=== PATIENT | female | born 1965 | race Caucasian/White ===

== ENCOUNTER 2020-09-08 09:49 | Observation (INO) | payer BC, OTHER ==
[2020-09-08] MEDS ORDERED: ASPIRIN 81 MG PO STA (10:14)
[2020-09-08] MEDS ORDERED: NITROGLYCERIN SL TABS 0.4 MG TAB SUBLINGUAL STA (10:14)
[2020-09-08] MEDS ORDERED: SODIUM CHLORIDE 0.9% 1,000 ML IV STA (10:14)
--- NOTE | 2020-09-08 10:20 | ED ---
Chest Pain HPI - General Chief Complaint: Chest Pain Stated Complaint: Chest Pain/Nausea Time Seen by Provider: 09/08/20 10:03 Source: patient Mode of arrival: ambulatory Limitations: no limitations - History of Present Illness Initial Comments: 55-year-old white female, well-appearing and alert and oriented 4, presents to the emergency room with approximately one hour of chest pain that radiates down her right arm, her mid back, in her anterior neck right side. Patient states that she has never had these symptoms before. She states that she does have some nausea but denies any shortness of breath or cough. Patient denies any medications on a daily basis. Patient is a nonsmoker. Patient has a surgical history of a bowel resection and a cholecystectomy. Patient denies any family history of cardiac disease, states both parents are alive. MD Complaint: chest pain -: hour(s) (1) Onset: during rest Pain Location: substernal Pain Radiation: RUE, back (mid back), neck (anterior) Severity: moderate Severity scale (1-10): 5 Quality: heaviness (pressure) Improves With: nothing Worsens With: nothing Anginal Symptoms: nausea Treatments Prior to Arrival: none - Related Data On Oral Contraceptives: No Home Medications Medication Instructions Recorded Confirmed Escitalopram [Lexapro] 10 mg PO DAILY 09/08/20 09/08/20 Allergies Allergy/AdvReac Type Severity Reaction Status Date / Time No Known Allergies Allergy Verified 09/08/20 11:07 Review of Systems ROS Statement: Those systems with pertinent positive or pertinent negative responses have been documented in the HPI. ROS Other: All systems not noted in ROS Statement are negative. EKG Findings - EKG Results: EKG: WNL, sinus rhythm (ricular rate of 60, TN interval 0.126, QRS of 0.72, QTC of 0.418; normal sinus rhythm) Past Medical History Past Medical History: No Reported History History of Any Multi-Drug Resistant Organisms: None Reported Past Surgical History: Bowel Resection, Section, Cholecystectomy Past Psychological History: Anxiety Smoking Status: Never smoker Past Alcohol Use History: None Reported Past Drug Use History: None Reported General Exam Limitations: no limitations General appearance: alert, in no apparent distress Head exam: Present: atraumatic, normocephalic, normal inspection Eye exam: Present: normal appearance, PERRL, EOMI. Absent: scleral icterus, conjunctival injection, periorbital swelling Pupils: Present: normal accommodation ENT exam: Present: normal exam, normal oropharynx, mucous membranes moist Neck exam: Present: normal inspection, full ROM. Absent: tenderness, meningismus, lymphadenopathy, thyromegaly Respiratory exam: Present: normal lung sounds bilaterally. Absent: respiratory distress, wheezes, rales, rhonchi, stridor, accessory muscle use, decreased breath sounds Cardiovascular Exam: Present: regular rate, normal rhythm, normal heart sounds. Absent: systolic murmur, diastolic murmur, rubs, gallop, clicks, JVD GI/Abdominal exam: Present: soft, normal bowel sounds. Absent: distended, tenderness, guarding, rebound, rigid Rectal exam: Present: deferred Extremities exam: Present: normal inspection, full ROM, normal capillary refill. Absent: tenderness, pedal edema, joint swelling, calf tenderness Back exam: Present: normal inspection, full ROM, tenderness (Mid back pain). Absent: CVA tenderness (R), CVA tenderness (L), muscle spasm, paraspinal tenderness, vertebral tenderness Neurological exam: Present: alert, oriented X3, CN II-XII intact Psychiatric exam: Present: normal affect, normal mood Skin exam: Present: warm, dry, intact, normal color. Absent: rash, cyanosis, diaphoretic, erythema, petechiae, pallor, mottled Course Vital Signs 09/08/20 09/08/20 09:52 13:21 Temperature 98 F Pulse Rate 68 69 Respiratory 18 16 Rate Blood Pressure 108/59 115/78 O2 Sat by Pulse 99 100 Oximetry Chest Pain MDM - MDM Chest x-ray negative for acute cardiopulmonary process, troponin is negative at 0.012, hemoglobin and hematocrit is 14 and 41 respectively, white count 9.9. EKG is negative for any ST elevation. Patient's heart score is 2, pain at rest with radiation to her right arm and age of 55. Patient denies any medical history. Is a nonsmoker. Negative family history. Patient will be admitted for chest pain. Case discussed with Dr. Cantu. Disposition Clinical Impression: Chest pain Disposition: ADMITTED IP TO THIS [facility] Decision Date: 09/08/20 Decision Time: 12:06
[2020-09-08 10:48] LABS: Basophils # (A) 0.1 k/uL (0-0.2); Basophils % (A) 1 %; Eosinophils % (A) 10 %; HCT 41.5 % (34.0-46.0); HGB 14.5 gm/dL (11.4-16.0); Lymphocytes % (A) 31 %; MCV 85.9 fL (80.0-100.0); Mean Platelet Volume 6.4; Monocytes # (A) 0.6 k/uL (0-1.0); Monocytes % (A) 6 %; Neutrophils # (A) 4.9 k/uL (1.3-7.7); Neutrophils % (A) 50 %; Platelet Count 291 k/uL (150-450); RBC 4.83 m/uL (3.80-5.40); RDW 12.2 % (11.5-15.5); WBC 9.9 k/uL (3.8-10.6)
[2020-09-08 10:49] LABS: Appearance,Urine Clear (Clear); Bilirubin,Urine Negative (Negative); Blood,Urine Negative (Negative); Color,Urine Light Yellow; Glucose,Urine (UA) Negative (Negative); Ketones,Urine Negative (Negative); Leukocyte Esterase,Urine Negative (Negative); Nitrite,Urine Negative (Negative); PH, Urine 5.5 (5.0-8.0); Protein,Urine Negative (Negative); Specific Gravity,Urine 1.006 (1.001-1.035); Urobilinogen,Urine <2.0 mg/dL (<2.0)
[2020-09-08 10:57] LABS: Partial Thromboplastin Time 24.7 sec (22.0-30.0); Prothrombin Time 10.4 sec (9.0-12.0)
[2020-09-08 11:03] LABS: ALT 11 U/L (4-34); AST 26 U/L (14-36); African American GFR (CKD) >90 (>60 ml/min/1.73 sqM); Albumin 4.6 g/dL (3.5-5.0); Alkaline Phosphatase 101 U/L (38-126); Amylase 93 U/L (30-110); Anion Gap 7 mmol/L; Blood Urea Nitrogen 19 mg/dL (7-17); Calcium 9.9 mg/dL (8.4-10.2); Carbon Dioxide 29 mmol/L (22-30); Chloride 103 mmol/L (98-107); Glucose 105 mg/dL (74-99); Lipase 284 U/L (23-300); Non-African American GFR(CKD) >90 (>60 ml/min/1.73 sqM); Potassium 4.4 mmol/L (3.5-5.1); Sodium 139 mmol/L (137-145); Total Bilirubin 0.4 mg/dL (0.2-1.3); Total Protein 7.4 g/dL (6.3-8.2)
--- NOTE | 2020-09-08 11:35 | XR ---
EXAMINATION TYPE: XR chest 2V DATE OF EXAM: 09/08/2020 COMPARISON: None HISTORY: Chest pain, nausea TECHNIQUE: Frontal and lateral views of the chest are obtained. FINDINGS: Overlying leads. Heart size is within normal limits. Trachea is midline. No focal consolid ation, pneumothorax or pleural effusion. Osseous structures are unremarkable. IMPRESSION: 1. No acute pulmonary disease.
[2020-09-08] MEDS ORDERED: NALOXONE 0.4 MG/ML 1 ML VIAL IV PRN (12:49)
[2020-09-08] MEDS: SODIUM CHLORIDE 0.9% 1,000 ML IV SCH (13:20)
--- NOTE | 2020-09-08 15:08 | US ---
EXAMINATION TYPE: US abdomen complete DATE OF EXAM: 09/08/2020 COMPARISON: NONE CLINICAL HISTORY: pain. Abdomen pain EXAM MEASUREMENTS: Liver Length: 13.8 cm Gallbladder Wall: Unable to visualize gallbladder. CBD: 0.7 cm Spleen: 9.1 cm Right Kidney: 10.6 x 4.4 x 4.4 cm Left Kidney: 9.4 x 5.2 x 4.7 cm Pancreas: visualized portions wnl, limited by overlying midline bowel gas Liver: wnl Gallbladder: unable to visualize in supine and LLD positions, patient states she has not had her gal lbladder removed Evidence for sonographic Lizama's sign: yes CBD: wnl Spleen: visualized portions wnl, limited by overlying bowel gas Right Kidney: wnl Left Kidney: wnl Upper IVC: wnl Abd Aorta: wnl IMPRESSION: 1. The gallbladder is not visualized on this study. The patient states the gallbladder has not been r emoved. Positive Lizama's sign per computer engineering technologist. 2. No hydronephrosis or shadowing renal calculi. 3. The pancreas and spleen are limited in visualization due to overlying bowel gas.
[2020-09-08] MEDS ORDERED: TEMAZEPAM 15 MG CAP PO PRN (18:20)
[2020-09-08] MEDS ORDERED: ALPRAZolam 0.25 MG TAB PO PRN (18:20)
[2020-09-08] MEDS ORDERED: IOPAMIDOL CONTRAST (ORAL USE) VIAL PO PRN (18:59)
[2020-09-08] MEDS: PANTOPRAZOLE 40 MG/10 ML VIAL IVP SCH (19:22)
[2020-09-08] MEDS: HYDROmorphone 0.5 MG/0.5 ML SYRINGE IVP PRN (19:22)
--- NOTE | 2020-09-08 21:01 | HP ---
HISTORY AND PHYSICAL DATE OF SERVICE: 09/08/2020. CHIEF COMPLAINT: Chest pain and chest pressure. HISTORY OF PRESENT ILLNESS: This is a 55-year-old woman with a past medical history of section, bowel resection, history of colonic volvulus, history of cholecystectomy, cystectomy, section being followed by primary physician elsewhere, was complaining of back pain for the last several days which was nagging in character. Now the patient is complaining of chest pressure, which was radiating to the right arm and midback also. The patient also has some anterior neck pain. Patient also had pain in the right shoulder area. The patient came to [facility] and was admitted to for further evaluation and treatment. There is no history of fever, rigors. No headache, loss of consciousness, seizures. PAST MEDICAL HISTORY: History of section, history of bowel resection, history of cholecystectomy. MEDICATIONS: Prior to admission, Lexapro 10 mg daily. ALLERGIES: None. FAMILY HISTORY: No history of heart disease or strokes in the family. SOCIAL HISTORY: No smoking. No history of alcohol intake. REVIEW OF SYSTEMS: ENT: Mentioned earlier. CARDIOVASCULAR SYSTEM: No angina. RESPIRATION: No cough. GI: As mentioned earlier. : No dysuria. NERVOUS SYSTEM: No numbness, weakness. ALLERGY: No asthma or hayfever. MUSCULOSKELETAL: As mentioned. ( ) ENDOCRINE: No history of diabetes or hypothyroidism. CONSTITUTIONAL: Negative. RHEUMATOLOGY: Negative. PSYCHIATRIC: As mentioned. PHYSICAL EXAMINATION: Alert, attentive. Pulse 57, blood pressure 120/76 respiration 17, temperature 97.9, pulse ox 97% on room air. HEENT: Conjunctivae normal. Oral mucosa moist neck is no jugular venous distention. No lymph enlargement. Cardiovascular system: No cyanosis pressure in the bases. No rhonchi. No crackles. Abdomen: Soft, nontender. No mass palpable. Legs: No edema. Nervous System: Higher functions as mentioned. Moves all 4 limbs. No focal deficit. Lymphatics: No lymph nodes. Skin: No rash, no ulcers. Joints: No active deforming arthropathy. LABS: CBC within normal limits and ( ) is 1. Glucose is 105 and COVID-19 is negative. Abdominal ultrasound showed: Gallbladder is not visualized. No hydronephrosis. Pancreas and spleen are limited in visualization. ASSESSMENT: 1. Chest pain, for evaluation possible coronary disease. 2. Rule out cholelithiasis. 3. History of bowel resection. 4. ( ). 5. History of cholecystectomy. 6. History of anxiety. 7. FULL CODE. RECOMMENDATIONS: This 55-year-old woman who presented with multiple complex medical issues, at this time I recommend to continue current management and treatment. The initial troponins are negative. The EKG did not show acute abnormality. We will continue to monitor and obtain a cardiology consultation. I would also recommend a D-dimer and also obtain a CT scan of the chest and abdomen. If the D-dimer is negative with contrast, if is positive we will obtain CT angio of the chest. Prognosis guarded because of multiple complex medical problems. Further recommendations to follow. Discussed with the patient, who understands and agrees. MMPENNYL / IJN: [id number] /
--- NOTE | 2020-09-08 22:26 | CT ---
EXAMINATION TYPE: CT angio thor/abd pel aorta DATE OF EXAM: 09/08/2020 COMPARISON: None HISTORY: RULE OUT AORTIC ANEURYSM CT DLP: 896.20 mGycm Automated exposure control for dose reduction was used. CONTRAST: Performed with IV Contrast, patient injected with 100 mL of Isovue 370. Images obtained from the thoracic inlet to the diaphragm without contrast. Images obtained from the t horacic inlet to the lower pelvis with IV contrast Isovue 100 mL. There are 3-D post processed images . The lungs are clear of infiltrate. There is no evidence of a pulmonary mass. There is no pleural effu jaye. There is no pericardial effusion. Heart size is normal. There is no mediastinal adenopathy. The re are no hilar masses. Liver spleen stomach pancreas appear normal. The bile ducts are not dilated. There are clips from cho lecystectomy. There is no adrenal mass. Kidneys show satisfactory contrast opacification. There is no hydronephrosi s. Ureters are not dilated. There is no retroperitoneal adenopathy. There is no evidence of a pelvic mass. There is no mesenteric edema. There is no ascites or free air. There is no evidence of a bowel obstruction. There is no evidence of filling defect in the pulmonary arteries. Thoracic aorta appears normal. Ascending aorta measures 2.8 cm. Abdominal aorta appears normal. There is no aneurysm or dissection. There is arterial flow in the celiac artery and superior mesenteric ar glen. There is arterial flow in the renal and iliac and femoral arteries. There is no evidence of art erial aneurysm or dissection. I see no hemodynamic stenosis. There is no evidence of any significant plaque formation The lumbar and thoracic vertebra appear intact. There is no compression fracture. Sternum is intact. The visualized pelvis appears intact. IMPRESSION: Normal CT angiogram of the chest abdomen pelvis. No evidence of arterial aneurysm or dissection.
[2020-09-09] MEDS: SODIUM CHLORIDE 0.9% 1,000 ML IV SCH ×2 (02:02→16:02)
[2020-09-09] MEDS: ASPIRIN 81 MG PO SCH (08:50)
[2020-09-09] MEDS: PANTOPRAZOLE 40 MG/10 ML VIAL IVP SCH ×2 (08:50→21:06)
[2020-09-09] MEDS: ESCITALOPRAM 10 MG TAB PO SCH (08:52)
[2020-09-09 09:24] LABS: Basophils # (A) 0.09 X 10*3/uL (0.00-0.10); Basophils % (A) 1.1 %; Eosinophils # (A) 0.91 X 10*3/uL (0.04-0.35); Eosinophils % (A) 11.6 %; HGB 13.3 g/dL (12.0-15.0); Lymphocytes # (A) 2.81 X 10*3/uL (0.90-5.00); Lymphocytes % (A) 35.8 %; MCH 29.6 pg (27.0-32.0); MCHC 33.3 g/dL (32.0-37.0); MCV 89.1 fL (80.0-97.0); Mean Platelet Volume 9.3 fL (9.5-12.2); Monocytes # (A) 0.69 X 10*3/uL (0.20-1.00); Monocytes % (A) 8.8 %; Neutrophils # (A) 3.34 X 10*3/uL (1.80-7.70); Neutrophils % (A) 42.4 %; Platelet Count 261 X 10*3/uL (140-440); RBC 4.49 X 10*6/uL (4.10-5.20); RDW 12.3 % (11.5-14.5); WBC 7.86 X 10*3/uL (4.50-10.00)
--- NOTE | 2020-09-09 10:57 | P.CRDCN ---
History of Present Illness History of present illness: HISTORY OF PRESENTING ILLNESS This is a pleasant 55-year-old female past medical history significant for abdominal surgeries. 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 We have been asked to see in consultation for chest pain. Patient presents to the emergency room with approximately one hour of anterior chest pain that radiates to right shoulder, her upper mid back, in her anterior neck right side. She states this started around 6:30am, she was just sitting at her kitchen table. She describes it as 10/10, sharp. It lasted about an hour. She had associated nausea and lightheadedness. She denies diaphoresis and shortness of breath lower extremity edema, fatigue, weakness, syncope. Aggravating factors including movement of neck and torso. Her chest, arms, back and neck are all tender to palpation. Alleviating factors included IV Dilaudid. Nitro and aspirin did not help relieve her pain. Denies symptoms of orthopnea or PND. She denies history of Diabetes, coronary artery disease, MA, hypertension, hyperlipidemia or stroke. She is s non-smoker, never has smoked, denies alcohol and illicit drug use. She denies family history of cardiac disease. She denies use of any cardiac medications. She has never had this pain before. She states years ago she did have a cardiac workup that included an echocardiogram and was told that was normal. She continues to have neck pain at this time, worse with movement. DIAGNOSTICS EKG reveals sinus rhythm, heart rate 60, no significant STT wave abnormalities. EKG 09/09 morning revealed sinus bradycardia, heart rate 55, no significant STT wave abnormalities Telemetry tracings indicate sinus mechanism, heart rate 55-70s Chest xray No acute cardiopulmonary process Abdominal Ultrasound- Positive blakely's sign per contract technician, No hydr onephrosis, pancreas and spleen are limited visualization due to overlying gas pattern. Laboratory reviewed, CBC unremarkable, troponin negative x 1, D-dimer negative, Sodium 139, K 4.4, BUN 19, sCr 0.74, Mag 2.0, Liver enzymes within normal limits, Amylase and lipase within normal limits, CBC unremarkable. REVIEW OF SYSTEMS At the time of my exam: CONSTITUTIONAL: Denies fever or chills. CARDIOVASCULAR: +chest pain, Denies shortness of breath, orthopnea, PND or palpitations. RESPIRATORY: Denies cough. GASTROINTESTINAL: Denies abdominal pain, diarrhea, constipation, nausea or vomiting. MUSCULOSKELETAL: Denies myalgias. NEUROLOGIC: Denies numbness, tingling, headacbe or weakness. ENDOCRINE: Denies fatigue, weight change, polydipsia or polyurina. GENITOURINARY: Denies burning, hematuria or urgency with micturation. HEMATOLOGIC: Denies history of anemia or bleeding. PHYSICAL EXAMINATION Blood pressure 105/68 heart rate 63 afebrile and maintaining oxygen saturation 97% on room air CONSTITUTIONAL: No apparent distress. HEENT: Head is normocephalic. Pupils are equal, round. Sclerae anicteric. Mucous membranes of the mouth are moist. No JVD. No carotid bruit. CHEST EXAMINATION: Lungs are clear to auscultation. Chest wall tenderness to palpation HEART EXAMINATION: Regular rate and rhythm. S1, S2 heard. No murmurs, gallops or rub. ABDOMEN: Soft, nontender. Positive bowel sounds. EXTREMITIES: 2+ peripheral pulses, no lower extremity edema and no calf tenderness. SKIN: intact NEUROLOGIC EXAMINATION: Patient is awake, alert and oriented x3. MSK: Neck tenderness to palpation and movement, Right arm and left arm tenderness with palpation and movement, Upper back tenderness with palpation ASSESSMENT Chest pain, atypical, acute coronary syndrome has been ruled out. PLAN An acute coronary event has been ruled out with no EKG evidence of ischemia and negative cardiac enzymes. Obtain 2D echocardiogram and doppler study to assess cardiac structure and function. Perform exercise stress test to assess for stress induced cardiac ischemia. If stress test negative, ok to discharge from cardiology perspective Follow up with Dr. Hernandez Thank you kindly for this consultation. Nurse Practitioner note has been reviewed, I agree with a documented findings and plan of care. Patient was seen and examined. Past Medical History Past Medical History: No Reported History History of Any Multi-Drug Resistant Organisms: None Reported Past Surgical History: Bowel Resection, Section, Cholecystectomy Past Psychological History: Anxiety Smoking Status: Never smoker Past Alcohol Use History: None Reported Past Drug Use History: None Reported Medications and Allergies Home Medications Medication Instructions Recorded Confirmed Type Escitalopram [Lexapro] 10 mg PO DAILY 09/08/20 09/08/20 History traMADol HCL [Ultram] 50 mg PO Q4HR PRN 3 Days #18 tab 09/09/20 Rx Allergies Allergy/AdvReac Type Severity Reaction Status Date / Time No Known Allergies Allergy Verified 09/08/20 11:07 Physical Exam Vitals: Vital Signs Temp Pulse Resp BP Pulse Ox 09/08/20 13:21 69 16 115/78 100 09/08/20 09:52 98 F 68 18 108/59 99 Intake and Output 09/07/20 09/08/20 09/08/20 22:59 06:59 14:59 Other: Weight 76.657 kg Results 09/09/20 06:00 09/08/20 10:05 Cardiac Enzymes 09/08/20 09/08/20 Range/Units 10:05 10:05 AST 26 (14-36) U/L Troponin I <0.012 (0.000-0.034) ng/mL Coagulation 09/08/20 Range/Units 10:05 PT 10.4 (9.0-12.0) sec APTT 24.7 (22.0-30.0) sec CBC 09/08/20 Range/Units 10:05 WBC 9.9 (3.8-10.6) k/uL RBC 4.83 (3.80-5.40) m/uL Hgb 14.5 (11.4-16.0) gm/dL Hct 41.5 (34.0-46.0) % Plt Count 291 (150-450) k/uL Comprehensive Metabolic Panel 09/08/20 Range/Units 10:05 Sodium 139 (137-145) mmol/L Potassium 4.4 (3.5-5.1) mmol/L Chloride 103 (98-107) mmol/L Carbon Dioxide 29 (22-30) mmol/L BUN 19 H (7-17) mg/dL Creatinine 0.74 (0.52-1.04) mg/dL Glucose 105 H (74-99) mg/dL Calcium 9.9 (8.4-10.2) mg/dL AST 26 (14-36) U/L ALT 11 (4-34) U/L Alkaline Phosphatase 101 (38-126) U/L Total Protein 7.4 (6.3-8.2) g/dL Albumin 4.6 (3.5-5.0) g/dL Current Medications Generic Name Dose Route Start Last Admin Trade Name Freq PRN Reason Stop Dose Admin Sodium Chloride 1,000 mls @ 75 mls/hr 09/08/20 13:00 09/08/20 13:20 Saline 0.9% IV 75 mls/hr .[id number] SHANNA Administration Naloxone HCl 0.2 mg 09/08/20 12:49 Naloxone 0.4 Mg/Ml 1 Ml Vial IV Q2M PRN Opioid Reversal Intake and Output 09/07/20 09/08/20 09/08/20 22:59 06:59 14:59 Other: Weight 76.657 kg Patient Weight 09/09/20 06:59 Weight 76.657 kg 09/08/20 10:05 09/08/20 10:05
[2020-09-09 14:09] LABS: African American GFR (CKD) 96.2 (60.0-200.0); Albumin 3.8 g/dL (3.80-4.90); Albumin/Globulin Ratio 1.58 (1.60-3.17); Anion Gap 6.3 mmol/L (4.00-12.00); BUN/Creat Ratio 13.75 Ratio (12.00-20.00); Calcium 8.8 mg/dL (8.7-10.3); Carbon Dioxide 28.7 mmol/L (21.6-31.8); Globulin 2.4 g/dL (1.6-3.3); Potassium 4.3 mmol/L (3.5-5.5); Total Bilirubin 0.6 mg/dL (0.2-1.2); Total Protein 6.2 g/dL (6.2-8.2)
[2020-09-09] MEDS: HYDROmorphone 0.5 MG/0.5 ML SYRINGE IVP PRN (16:02)
--- NOTE | 2020-09-09 16:39 | P.GSCN ---
History of Present Illness Consult date: 09/09/20 History of present illness: CHIEF COMPLAINT: Chest pain and abdominal pain HISTORY OF PRESENT ILLNESS: This is a 55-year-old female with a known past surgical history of volvulus requiring bowel resection about 6 years ago in [place], cholecystectomy and . Patient presents to the hospital with complaints of chest pain that radiated up into her neck and right shoulder as well as lower abdominal pain. She has been nauseated denies any vomiting. Jeff es any change in bowel habits. Denies any fever chills or sweats. She is also been lightheaded. She was admitted to the hospital regarding her chest pain. She had cardiac workup completed evaluated by cardiology and had undergone stress test today. Results are still pending. She had an abdominal ultrasound completed shows the gallbladder was not visualized. She had a CTA of the chest abdomen and pelvis which was negative for any aneurysm or dissection. Patient reports that her symptoms are very similar when she presented to the hospital 6 years ago for the volvulus in which she required surgery. Patient is still complaining of lower abdominal pain at this time. She states that her chest pain has resolved. PAST MEDICAL HISTORY: See list. PAST SURGICAL HISTORY: See list. MEDICATIONS: See list. ALLERGIES: See list. SOCIAL HISTORY: No illicit drug use. REVIEW OF SYSTEMS: CONSTITUTIONAL: Denies fever or chills. HEENT: Denies blurred vision, vision changes, or eye pain. Denies hemoptysis CARDIOVASCULAR: Denies chest pain or pressure. RESPIRATORY: No shortness of breath. GASTROINTESTINAL: See HPI for pertinent findings HEMATOLOGIC: Denies bleeding disorders. GENITOURINARY: Denies any blood in urine or increased urinary frequency. SKIN: Denies pruitis. Denies rash. PHYSICAL EXAM: VITAL SIGNS: Reviewed GENERAL: Well-developed in no acute distress. HEENT: No sclera icterus. Extraocular movements grossly intact. Moist buccal mucosa. Head is atraumatic, normocephalic. No nasal drainage. ABDOMEN: Soft. Nondistended. Nontender with palpation. In fact pushing on the abdomen patient has relief of her abdominal pain. NEUROLOGIC: Alert and oriented. Cranial nerves II through XII grossly intact. LABORATORY DATA: WBC 7.86 hemoglobin 13.3 platelets 261 INR 1.0 d-dimer 0.35 sodium 140 potassium 4.3 creatinine 0.8 LFTs normal lipase normal troponins are negative UA negative COVID-19 not detected IMAGING: Imaging as stated above ASSESSMENT: 1. Lower abdominal pain with nausea 2. Chest pain cardiac workup being completed 3. Prior history of volvulus with bowel resection 6 years ago 4. History of Cholecystectomy PLAN: -Recommend that patient continues her hospitalization since she is still continues to have abdominal pain -Further recommendations forthcoming per surgeon -Continue IV fluids -Continue pain medication as needed Thank you for this consultation Physician Blending Kettle Tender note has been reviewed by physician. Signing provider agrees with the documented findings, assessment, and plan of care. Past Medical History Past Medical History: No Reported History History of Any Multi-Drug Resistant Organisms: None Reported Past Surgical History: Bowel Resection, Section, Cholecystectomy Past Psychological History: Anxiety Smoking Status: Never smoker Past Alcohol Use History: None Reported Past Drug Use History: None Reported Medications and Allergies Home Medications Medication Instructions Recorded Confirmed Type Escitalopram [Lexapro] 10 mg PO DAILY 09/08/20 09/08/20 History traMADol HCL [Ultram] 50 mg PO Q4HR PRN 3 Days #18 tab 09/09/20 Rx Allergies Allergy/AdvReac Type Severity Reaction Status Date / Time No Known Allergies Allergy Verified 09/08/20 11:07 Surgical - Exam Vital Signs Temp Pulse Resp BP Pulse Ox 98 F 68 18 108/59 99 09/08/20 09:52 09/08/20 09:52 09/08/20 09:52 09/08/20 09:52 09/08/20 09:52 Results - Labs 09/09/20 06:00 09/09/20 06:00 Abnormal Lab Results - Last 24 Hours (Table) 09/09/20 09/09/20 Range/Units 06:00 06:00 MPV 9.3 L (9.5-12.2) fL Eosinophils # 0.91 H (0.04-0.35) X 10*3/uL Albumin/Globulin Ratio 1.58 L (1.60-3.17) g/dL Diabetes panel 09/09/20 Range/Units 06:00 Sodium 140 (135-145) mmol/L Potassium 4.3 (3.5-5.5) mmol/L Chloride 105 (96-109) mmol/L Carbon Dioxide 28.7 (21.6-31.8) mmol/L BUN 11.0 (9.0-27.0) mg/dL Creatinine 0.8 (0.6-1.5) mg/dL Glucose 105 (70-110) mg/dL Calcium 8.8 (8.7-10.3) mg/dL AST 20 (13-35) U/L ALT 10 (8-44) U/L Alkaline Phosphatase 104 (41-126) U/L Total Protein 6.2 (6.2-8.2) g/dL Albumin 3.80 (3.80-4.90) g/dL Calcium panel 09/09/20 Range/Units 06:00 Calcium 8.8 (8.7-10.3) mg/dL Albumin 3.80 (3.80-4.90) g/dL Pituitary panel 09/09/20 Range/Units 06:00 Sodium 140 (135-145) mmol/L Potassium 4.3 (3.5-5.5) mmol/L Chloride 105 (96-109) mmol/L Carbon Dioxide 28.7 (21.6-31.8) mmol/L BUN 11.0 (9.0-27.0) mg/dL Creatinine 0.8 (0.6-1.5) mg/dL Glucose 105 (70-110) mg/dL Calcium 8.8 (8.7-10.3) mg/dL Adrenal panel 09/09/20 Range/Units 06:00 Sodium 140 (135-145) mmol/L Potassium 4.3 (3.5-5.5) mmol/L Chloride 105 (96-109) mmol/L Carbon Dioxide 28.7 (21.6-31.8) mmol/L BUN 11.0 (9.0-27.0) mg/dL Creatinine 0.8 (0.6-1.5) mg/dL Glucose 105 (70-110) mg/dL Calcium 8.8 (8.7-10.3) mg/dL Total Bilirubin 0.6 (0.2-1.2) mg/dL AST 20 (13-35) U/L ALT 10 (8-44) U/L Alkaline Phosphatase 104 (41-126) U/L Total Protein 6.2 (6.2-8.2) g/dL Albumin 3.80 (3.80-4.90) g/dL
--- NOTE | 2020-09-09 16:59 | ECHOF ---
Referral Reason:LV function MEASUREMENTS -------- HEIGHT: 165.1 cm WEIGHT: 76.7 kg BP: 108/68 RVIDd: 2.0 cm (< 3.3) IVSd: 0.8 cm (0.6 - 1.1) LVIDd: 3.9 cm (3.9 - 5.3) LVPWd: 1.1 cm (0.6 - 1.1) IVSs: 1.2 cm LVIDs: 2.6 cm LVPWs: 1.4 cm LAESV Index (A-L): 34.04 ml/m Ao Diam: 2.4 cm (2.0 - 3.7) AV Cusp: 1.5 cm (1.5 - 2.6) LA Diam: 3.8 cm (2.7 - 3.8) MV EXCURSION: 16.396 mm (> 18.000) MV EF SLOPE: 121 mm/s (70 - 150) EPSS: 0.4 cm MV E Gurinder: 1.00 m/s MV DecT: 197 ms MV A Gurinder: 0.84 m/s MV E/A Ratio: 1.18 RAP: 5.00 mmHg RVSP: 32.13 mmHg FINDINGS -------- Sinus rhythm. This was a technically good study. The left ventricular size is normal. Left ventricular wall thickness is normal. There is normal g lobal left ventricular contractility. Overall left ventricular systolic function is normal with, an EF between 55 - 60 %. The diastolic filling pattern is normal for the age of the patient 9.99. The right ventricle is normal in size. LA is midly dilated 29-33ml/m2. The right atrial size is normal. Interatrial and interventricular septum intact. There is no evidence of aortic regurgitation. There is no evidence of aortic stenosis. Mild mitral regurgitation is present. Mild tricuspid regurgitation present. There is no evidence of pulmonary hypertension. The right v entricular systolic pressure, as measured by Doppler, is 32.13mmHg. There is no pulmonic regurgitation present. The aortic root size is normal. Normal inferior vena cava with normal inspiratory collapse consistent with estimated right atrial pre ssure of 5 mmHg. There is no pericardial effusion. CONCLUSIONS -------- 1. The left ventricular size is normal. 2. Left ventricular wall thickness is normal. 3. There is normal global left ventricular contractility. 4. Overall left ventricular systolic function is normal with, an EF between 55 - 60 %. 5. The diastolic filling pattern is normal for the age of the patient 9.99 6. LA is midly dilated 29-33ml/m2. 7. Mild mitral regurgitation is present. 8. Mild tricuspid regurgitation present. DRAPERY HAND: Reba Bartlett RDCS
--- NOTE | 2020-09-09 17:10 | P.STRESS ---
- Stress Test Note Stress Test Results/Findings: Exam Performed: stress echo exercise Exam Date: 09/09/20 Reason for Exam: CP Height: 5 ft 5 in Weight: 76.66 kg Protocol: STRESS ECHO EXERCISE Stage: 3 Duration of Exercise: 9:00 Resting Heart Rate: 65 Resting Blood Pressure: 168/84 Maximum Achieved Heart Rate: 162 Maximum Achieved Blood Pressure: 176/56 85% PMHR: 140 100% PMHR: 165 METS: 10.5 Technologist Comment: Stress Test Results/Findings: This is a 55-year-old female was admitted to the hospital with symptoms of chest pain. Stress data:. Baseline EKG showed sinus rhythm with normal [place] interval, QRS duration. Blood pressure at rest is 168/84 with pulse rate of 65. Patient walked on the Remington protocol for 9 minutes reaching a maximum heart rate of 162 with blood pressure 110/96. EKGs taken during and after exercise did not reveal significant changes from the baseline. Echo data: Baseline echo images show normal wall motion and thickening. Images taken after exercise showed augmentation of the wall motion and thickening in all segments. Patient did not express any chest pain. Final impression: #1. Negative stress test #2. Negative stress echo .
--- NOTE | 2020-09-09 21:30 | P.PN ---
Subjective Patient was admitted with the complaints of chest pain and back pain. Patient had extensive workup including a thoracic CT which did not show any pulmonary embolism is no significant degenerative spine disease. Patient denied any abdominal pain to me. Patient was complaining of some chest pain which improved it appeared to be musculoskeletal chest pain although patient underwent stress test which was negative my plan was to discharge the patient if the stress test was negative, patient was later evaluated by general surgery with an apparently patient complained of abdominal pain at that time and general surgery did not clear the patient were discharged. Constitutional: Denied any fatigue denied any fever. Cardio vascular: denied any palpitations Gastrointestinal denied any nausea vomiting Pulmonary: Denied any shortness of breath cough Neurologic denied any new focal deficits All inpatient medications were reviewed and appropriate changes in these medications as dictated in the interval history and assessment and plan. PHYSICAL EXAMINATION: GENERAL: The patient is alert and oriented x3, not in any acute distress. Well developed, well nourished. HEENT: Pupils are round and equally reacting to light. EOMI. No scleral icterus. No conjunctival pallor. Normocephalic, atraumatic. No pharyngeal erythema. No thyromegaly. CARDIOVASCULAR: S1 and S2 present. No murmurs, rubs, or gallops. PULMONARY: Chest is clear to auscultation, no wheezing or crackles. ABDOMEN: Soft, nontender, nondistended, normoactive bowel sounds. No palpable organomegaly. MUSCULOSKELETAL: No joint swelling or deformity. EXTREMITIES: No cyanosis, clubbing, or pedal edema. NEUROLOGICAL: Gross neurological examination did not reveal any focal deficits. SKIN: No rashes. Assessment and plan Chest pain: Rule out acute coronary syndrome stresses is negative musculoskeletal chest pain -Abdominal pain etiology is not known -Depression If cleared by general surgery patient will be discharged patient denied any abdominal pain to id will evaluated tomorrow. Objective - Vital Signs Vital signs: Vital Signs Temp 97.7 F 09/09/20 15:00 Pulse 70 09/09/20 15:00 Resp 18 09/09/20 15:00 BP 94/60 09/09/20 15:00 Pulse Ox 96 09/09/20 15:00 Intake & Output 09/09/20 09/09/20 09/10/20 06:59 18:59 06:59 Intake Total 600 Balance 600 Weight 76.66 kg Intake: Oral 600 Other: Voiding Method Toilet Toilet # Voids 3 - Labs CBC & Chem 7: 09/09/20 06:00 09/09/20 06:00 Labs: Abnormal Lab Results - Last 24 Hours (Table) 09/09/20 09/09/20 Range/Units 06:00 06:00 MPV 9.3 L (9.5-12.2) fL Eosinophils # 0.91 H (0.04-0.35) X 10*3/uL Albumin/Globulin Ratio 1.58 L (1.60-3.17) g/dL
[2020-09-10] MEDS: SODIUM CHLORIDE 0.9% 1,000 ML IV SCH (05:29)
[2020-09-10] MEDS: HYDROcodone/APAP 5-325MG 1 EACH TAB PO PRN ×2 (05:49→14:30)
[2020-09-10] MEDS: PANTOPRAZOLE 40 MG/10 ML VIAL IVP SCH ×2 (08:12→21:17)
[2020-09-10] MEDS: ASPIRIN 81 MG PO SCH (08:12)
[2020-09-10] MEDS: ESCITALOPRAM 10 MG TAB PO SCH (08:13)
--- NOTE | 2020-09-10 12:21 | P.PN ---
<Unique Max - Last Filed: 09/10/20 12:14> Subjective Progress Note Date: 09/10/20 CHIEF COMPLAINT: Chest pain and abdominal pain HISTORY OF PRESENT ILLNESS: Surgical service is following regards to patient's abdominal pain. Patient reports that last night she had increase again in that lower abdominal pain with chest pain, nausea and severe headache. She reports that her bowel movements have been regular. He has had decreased appetite. Afebrile. Patient completed stress test and stress echo which were both negative PHYSICAL EXAM: VITAL SIGNS: Reviewed. GENERAL: Well-developed in no acute distress. HEENT: No sclera icterus. Extraocular movements grossly intact. Moist buccal mucosa. Head is atraumatic, normocephalic. ABDOMEN: Soft. Nondistended. Tenderness with palpation of the lower abdomen NEUROLOGIC: Alert and oriented. Cranial nerves II through XII grossly intact. ASSESSMENT: 1. Lower abdominal pain with nausea 2. Chest pain cardiac workup being completed 3. Prior history of volvulus with bowel resection 6 years ago 4. History of Cholecystectomy PLAN: -Further recommendations forthcoming per surgeon -Continue pain medication as needed Physician Final Inspector Balance Wheel note has been reviewed by physician. Signing provider agrees with the documented findings, assessment, and plan of care. Objective - Vital Signs Vital signs: Vital Signs Temp 97.5 F L 09/10/20 07:00 Pulse 63 09/10/20 07:00 Resp 18 09/10/20 07:00 BP 108/54 09/10/20 07:00 Pulse Ox 96 09/10/20 07:00 Intake & Output 09/09/20 09/10/20 09/10/20 18:59 06:59 18:59 Intake Total 600 Balance 600 Weight 76.66 kg Intake: Oral 600 Other: Voiding Method Toilet Toilet Toilet # Voids 1 - Labs CBC & Chem 7: 09/09/20 06:00 09/09/20 06:00 Labs: Abnormal Lab Results - Last 24 Hours (Table) 09/09/20 Range/Units 06:00 Albumin/Globulin Ratio 1.58 L (1.60-3.17) g/dL <Adrian Albert - Last Filed: 09/10/20 14:31> Subjective As above. Patient having lower abdominal pain. This is separate from her upper abdominal and chest discomfort. This lower abdominal pain has been going on for the last few weeks and reminds her of the symptoms she had underwent colonic resection for volvulus. Her CAT scan was reviewed. Findings of previous cholecystectomy discussed with patient. Patient does have some constipation and mild proximal colonic distention however no discrete obstruction is seen. The patient does not have a obvious stapled anastomosis however there does appear to be loss of the sigmoid colon and I suspect a previous handsewn coloproctostomy. Patient says she is tolerating her diet. Normal bowel function. No rectal bleeding or melena. Mild nausea no vomiting. She has not had a colonoscopy in many years. If patient continues to tolerate diet and pelvic ultrasound is normal would deem stable for discharge. Patient asked to return to hospital if symptoms increase or recur. Recommend outpatient follow-up for colonoscopy. Objective - Vital Signs Vital signs: Vital Signs Temp 97.5 F L 09/10/20 07:00 Pulse 63 09/10/20 07:00 Resp 18 09/10/20 07:00 BP 108/54 09/10/20 07:00 Pulse Ox 96 09/10/20 07:00 Intake & Output 09/09/20 09/10/20 09/10/20 18:59 06:59 18:59 Intake Total 600 Balance 600 Weight 76.66 kg Intake: Oral 600 Other: Voiding Method Toilet Toilet Toilet # Voids 1 - Labs CBC & Chem 7: 09/09/20 06:00 09/09/20 06:00
--- NOTE | 2020-09-10 16:36 | P.DS ---
Providers Date of admission: 09/08/20 13:27 Attending physician: Terrell Burton Consults: 09/08/20 12:50 Consult Physician Urgent Consulting Provider: Miguel Andrade Consult Reason/Comments: chest pain Do you want consulting provider notified?: Yes 09/08/20 18:19 Consult Physician Routine Consulting Provider: Adrian Albert Consult Reason/Comments: r/o choleliithiasis Do you want consulting provider notified?: Yes Primary care physician: Physician Nonstaff Hospital Course: Patient was admitted with the complaints of chest pain and back pain. Patient had extensive workup including a thoracic CT which did not show any pulmonary embolism is no significant degenerative spine disease. Patient denied any abdominal pain to me. Patient was complaining of some chest pain which improved it appeared to be musculoskeletal chest pain although patient underwent stress test which was negative my plan was to discharge the patient if the stress test was negative, patient was later evaluated by general surgery with an apparently patient complained of abdominal pain at that time and general surgery did not clear the patient were discharged. 09/10/2020 Patient's chest pain resolved but still complaining of lower abdominal pain moderate severity. Patient pain is mostly in the suprapubic area patient had a normal urinalysis. I'll obtain a pelvic/vaginal ultrasound, patient was evaluated by general surgery and they're not requiring any further intervention at this time they're recommending outpatient colonoscopy patient will be discharged to follow with general surgery as an outpatient. PHYSICAL EXAMINATION: GENERAL: The patient is alert and oriented x3, not in any acute distress. Well developed, well nourished. HEENT: Pupils are round and equally reacting to light. EOMI. No scleral icterus. No conjunctival pallor. Normocephalic, atraumatic. No pharyngeal erythema. No thyromegaly. CARDIOVASCULAR: S1 and S2 present. No murmurs, rubs, or gallops. PULMONARY: Chest is clear to auscultation, no wheezing or crackles. ABDOMEN: Soft, nontender, nondistended, normoactive bowel sounds. No palpable organomegaly. MUSCULOSKELETAL: No joint swelling or deformity. EXTREMITIES: No cyanosis, clubbing, or pedal edema. NEUROLOGICAL: Gross neurological examination did not reveal any focal deficits. SKIN: No rashes. Assessment and plan Chest pain: Rule out acute coronary syndrome stresses is negative musculoskeletal chest pain, patient had a negative stress test negative CT thorax for pneumonia or pulmonary embolism -Abdominal pain all the workup including CT of the abdomen, urinalysis were negative awaiting vaginal ultrasound that if that's negative patient will be discharged today to follow with PCP and general surgery as an outpatient -Depression Plan - Discharge Summary Discharge Rx Participant: No New Discharge Prescriptions: New traMADol HCL [Ultram] 50 mg PO Q4HR PRN 3 Days #18 tab PRN Reason: Pain No Action Escitalopram [Lexapro] 10 mg PO DAILY Discharge Medication List Escitalopram [Lexapro] 10 mg PO DAILY 09/08/20 [History] traMADol HCL [Ultram] 50 mg PO Q4HR PRN 3 Days #18 tab 09/09/20 [Rx] Follow up Appointment(s)/Referral(s): Nonstaff,Physician [Primary Care Provider] - 3 Days Tahir Hernandez MD [STAFF PHYSICIAN] - 2 Weeks Patient Instructions/Handouts: Chest Pain (ED) Discharge Disposition: HOME SELF-CARE
--- NOTE | 2020-09-10 17:35 | US ---
EXAMINATION TYPE: US transvaginal DATE OF EXAM: 09/10/2020 COMPARISON: CT CLINICAL HISTORY: pelvic pain. Pt states pelvic pain TECHNIQUE: Transvaginal (TV). Transvaginal sonographic images of the pelvis were acquired. EXAM MEASUREMENTS: Uterus: 6.6 x 3.0 x 3.9 cm scar is seen. Endometrial Stripe: 0.6 cm Right Ovary: 2.0 x 1.7 x 1.5 cm Left Ovary: 1.9 x 1.8 x 1.6 cm 1. Uterus: Anteverted Heterogeneous, structure midline right= 1.2 x 1.0 x 1.2 cm this is most like ly a leiomyoma. 2. Endometrium: The endometrial stripe is 6 mm, which is thickened for a postmenopausal female. Diffe rential diagnosis includes endometrial hyperplasia, endometrial polyp, or endometrial cancer. Gynecol ogic evaluation is recommended. 3. Right Ovary: wnl 4. Left Ovary: wnl Color flow visualized within both ovaries 5. Bilateral Adnexa: wnl 6. Posterior cul-de-sac: wnl IMPRESSION: 1. The endometrial stripe measures 6.3 mm, which is thickened for a postmenopausal female. Differenti al diagnosis includes endometrial cancer, endometrial hyperplasia, or endometrial polyp. Gynecologic evaluation is recommended. 2. Heterogeneous hypoechoic structure within the right uterus measuring 1.2 cm is most likely a leiom yoma.
[2020-09-11] MEDS: ASPIRIN 81 MG PO SCH (07:43)
[2020-09-11] MEDS: ESCITALOPRAM 10 MG TAB PO SCH (07:43)
[2020-09-11] MEDS: PANTOPRAZOLE 40 MG/10 ML VIAL IVP SCH (07:43)
[2020-09-11] MEDS: HYDROcodone/APAP 5-325MG 1 EACH TAB PO PRN (07:43)
[2020-09-11 08:05] VITALS: BP 130/78; PULSE 63; RESP 18; TEMP 97.7
--- NOTE | 2020-09-11 11:08 | P.PN ---
<Unique Max - Last Filed: 09/11/20 11:03> Subjective Progress Note Date: 09/11/20 CHIEF COMPLAINT: Chest pain and abdominal pain HISTORY OF PRESENT ILLNESS: Surgical service is following regards to patient's abdominal pain. Patient reports having similar lower abdominal pain with nausea and pain going up into the chest. Pain medication does help. She had a transvaginal ultrasound completed results showing endometrial stripe measuring 6.3 mm which is thickened for a postmenopausal female. Differential diagnosis includes endometrial cancer, endometrial hyperplasia, or endometrial polyp. PRODUCTION SUPPORT CONSULTANT evaluation recommended. Heterogenous hypoechoic structure within the right uterus measuring 1.2 cm is most likely a leiomyoma. Patient will be seen by PRODUCTION SUPPORT CONSULTANT today. She denies any nausea or vomiting. Tolerating diet. She did have a regular bowel movement. Afebrile. Patient completed stress test and stress echo which were both negative PHYSICAL EXAM: VITAL SIGNS: Reviewed. GENERAL: Well-developed in no acute distress. HEENT: No sclera icterus. Extraocular movements grossly intact. Moist buccal mucosa. Head is atraumatic, normocephalic. ABDOMEN: Soft. Nondistended. Tenderness with palpation of the lower abdomen NEUROLOGIC: Alert and oriented. Cranial nerves II through XII grossly intact. ASSESSMENT: 1. Lower abdominal pain with nausea. Transvaginal ultrasound showing a thickened endometrial stripe and possible leiomyoma. Patient to be seen by PRODUCTION SUPPORT CONSULTANT service. 2. Chest pain cardiac workup completed 3. Prior history of volvulus with bowel resection 6 years ago 4. History of Cholecystectomy PLAN: -Recommend patient has colonoscopy completed outpatient -Follow up with PRODUCTION SUPPORT CONSULTANT service Physician Menu Planner note has been reviewed by physician. Signing provider agrees with the documented findings, assessment, and plan of care. Objective - Vital Signs Vital signs: Vital Signs Temp 97.7 F 09/11/20 07:00 Pulse 63 09/11/20 07:00 Resp 18 09/11/20 07:00 BP 130/78 09/11/20 07:00 Pulse Ox 99 09/11/20 07:00 Intake & Output 09/10/20 09/11/20 09/11/20 18:59 06:59 18:59 Intake Total 240 Balance 240 Intake: Oral 240 Other: Voiding Method Toilet Toilet # Voids 2 1 - Labs CBC & Chem 7: 09/09/20 06:00 09/09/20 06:00 <Adrian Albert - Last Filed: 09/11/20 16:10> Subjective Patient continues to have normal bowel function. No nausea or vomiting. She did have a normal bowel movement today. Pelvic ultrasound noted. She remains afebrile. Plans are for possible discharge today. Recommend outpatient follow- up for colonoscopy. Objective - Vital Signs Vital signs: Vital Signs Temp 97.7 F 09/11/20 07:00 Pulse 63 09/11/20 07:00 Resp 18 09/11/20 07:00 BP 130/78 09/11/20 07:00 Pulse Ox 99 09/11/20 07:00 Intake & Output 09/10/20 09/11/20 09/11/20 18:59 06:59 18:59 Intake Total 240 Balance 240 Intake: Oral 240 Other: Voiding Method Toilet Toilet # Voids 2 1 4 - Labs CBC & Chem 7: 09/09/20 06:00 09/09/20 06:00
--- NOTE | 2020-09-11 11:15 | EST ---
Stress Test Results/Findings: Exam Performed: stress echo exercise Exam Date: 09/09/20 Reason for Exam: CP Height: 5 ft 5 in Weight: 76.66 kg Protocol: STRESS ECHO EXERCISE Stage: 3 Duration of Exercise: 9:00 Resting Heart Rate: 65 Resting Blood Pressure: 168/84 Maximum Achieved Heart Rate: 162 Maximum Achieved Blood Pressure: 176/56 85% PMHR: 140 100% PMHR: 165 METS: 10.5 Technologist Comment: Stress Test Results/Findings: This is a 55-year-old female was admitted to the hospital with symptoms of chest pain. Stress data:. Baseline EKG showed sinus rhythm with normal [place] interval, QRS duration. Blood pressure at rest is 168/84 with pulse rate of 65. Patient walked on the Remington protocol for 9 minutes reaching a maximum heart rate of 162 with blood pressure 110/96. EKGs taken during and after exercise did not reveal significant changes from the baseline. Echo data: Baseline echo images show normal wall motion and thickening. Images taken after exercise showed augmentation of the wall motion and thickening in all segments. Patient did not express any chest pain. Final impression: #1. Negative stress test #2. Negative stress echo . SARAH
--- NOTE | 2020-09-11 13:48 | P.OBCN ---
History of Present Illness Consult date: 09/11/20 Requesting physician: Hua Hicks Reason for consult: other (Pelvic pain, abnormal ultrasound) Chief complaint: Chest and abdominal pain History of present illness: This is a 55-year-old female 1 para 1 with a last menstrual period over a year ago who presented with chest, neck, right arm, mid back pain, nausea, and dizziness along with abdominal pain that has been going on for 2-3 weeks. Her abdominal pain she states is in her mid abdomen from her sternum to her suprapubic area in the midline. She stated she had identical pain when she was diagnosed with curved volvulus several years ago. Pelvic ultrasound was ordered and part of the workup. Patient denies any postmenopausal vaginal bleeding. Her last Pap smear was approximately one month ago with her [employer] Dr. Hays from [place]. Pelvic ultrasound showed a normal-size uterus with an endometrial stripe of 6 mm and a possible 1.2 cm midline right fibroid. Both ovaries appeared normal. Obstetrical history: . History of 1 section. Gynecologic history: No history of sexually transmitted is this. She denies any history of abnormal Pap smears. She her last Pap smear was approximately one month ago and was normal. Social history: She is . Review of Systems Cardiovascular: Reports chest pain Gastrointestinal: Reports abdominal pain Genitourinary: Reports pelvic pain, Denies abnormal vaginal bleeding Past Medical History Past Medical History: No Reported History History of Any Multi-Drug Resistant Organisms: None Reported Past Surgical History: Bowel Resection, Section, Cholecystectomy Past Psychological History: Anxiety Smoking Status: Never smoker Past Alcohol Use History: None Reported Past Drug Use History: None Reported Medications and Allergies Home Medications Medication Instructions Recorded Confirmed Type Escitalopram [Lexapro] 10 mg PO DAILY 09/08/20 09/08/20 History traMADol HCL [Ultram] 50 mg PO Q4HR PRN 3 Days #18 tab 09/09/20 Rx Allergies Allergy/AdvReac Type Severity Reaction Status Date / Time No Known Allergies Allergy Verified 09/08/20 11:07 Exam Osteopathic Statement: *. No significant issues noted on an osteopathic structu ral exam other than those noted in the History and Physical/Consult. Vital Signs Temp Pulse Resp BP BP Pulse Ox 09/11/20 07:00 97.7 F 63 18 130/78 99 09/11/20 01:59 60 16 09/11/20 01:21 97.5 F L 57 L 16 121/63 99 09/10/20 20:00 16 09/10/20 19:37 98.0 F 60 16 105/71 97 09/10/20 15:00 97.8 F 62 18 97/58 99 Intake and Output 09/10/20 09/11/20 09/11/20 22:59 06:59 14:59 Intake Total 240 Balance 240 Intake: Oral 240 Other: Voiding Method Toilet Toilet # Voids 1 1 Deferred to office. Results Result Diagrams: 09/09/20 06:00 09/09/20 06:00 Assessment and Plan (1) Endometrial thickening on ultrasound Current Visit: Yes Status: Acute Code(s): R93.89 - ABNORMAL FINDINGS ON DX IMAGING OF OTH BODY STRUCTURES SNOMED Code(s): 376492160 (2) Pelvic pain Current Visit: Yes Status: Acute Code(s): R10.2 - PELVIC AND PERINEAL PAIN SNOMED Code(s): 90051216 Plan: Patient advised that without any vaginal bleeding and a very minimally thickened lining of her uterus, the chances of her having endometrial cancer are very slim. I advised options are to repeat the ultrasound in approximately 1 month versus proceeding with endometrial biopsy versus proceeding with dilation and curettage. The patient will repeat the ultrasound in 1 month and follow-up with me in the office at that time. If the lining is still slightly thickened, we will proceed with either a endometrial biopsy or dilation and curettage. The patient is advised to call my office and let me know if she does have any postmenopausal bleeding. If she does, we will proceed with biopsy. Patient is agreeable to this plan.
--- NOTE | 2020-09-11 16:26 | P.DS ---
Providers Date of admission: 09/08/20 13:27 Attending physician: Terrell Burton Consults: 09/08/20 12:50 Consult Physician Urgent Consulting Provider: Miguel Andrade Consult Reason/Comments: chest pain Do you want consulting provider notified?: Yes 09/08/20 18:19 Consult Physician Routine Consulting Provider: Adrian Albert Consult Reason/Comments: r/o choleliithiasis Do you want consulting provider notified?: Yes 09/11/20 07:53 Consult Physician Routine Consulting Provider: Kaylan Farnsworth Consult Reason/Comments: transvaginal US results, pain Do you want consulting provider notified?: Yes Primary care physician: Physician Nonstaff Hospital Course: Patient was admitted with the complaints of chest pain and back pain. Patient had extensive workup including a thoracic CT which did not show any pulmonary embolism is no significant degenerative spine disease. Patient denied any abdominal pain to me. Patient was complaining of some chest pain which improved it appeared to be musculoskeletal chest pain although patient underwent stress test which was negative my plan was to discharge the patient if the stress test was negative, patient was later evaluated by general surgery with an apparently patient complained of abdominal pain at that time and general surgery did not clear the patient were discharged. 09/10/2020 Patient's chest pain resolved but still complaining of lower abdominal pain moderate severity. Patient pain is mostly in the suprapubic area patient had a normal urinalysis. I'll obtain a pelvic/vaginal ultrasound, patient was evaluated by general surgery and they're not requiring any further intervention at this time they're recommending outpatient colonoscopy patient will be discharged to follow with general surgery as an outpatient. 09/11/2020 patient is still complaining of musculoskeletal chest pain for which the patient was prescribed tramadol. Patient had a vaginal ultrasound which showed a small EOMI, which probably is not contributing to her pain. There was a concern about endometrial thickening because of which MAINTENANCE WORKER consultation was obtained. Patient doesn't have any bleeding. LABORATORY TECHNICIAN is recommending a repeat ultrasound in about a month are D/C with endometrial biopsy. PHYSICAL EXAMINATION: GENERAL: The patient is alert and oriented x3, not in any acute distress. Well developed, well nourished. HEENT: Pupils are round and equally reacting to light. EOMI. No scleral icterus. No conjunctival pallor. Normocephalic, atraumatic. No pharyngeal erythema. No thyromegaly. CARDIOVASCULAR: S1 and S2 present. No murmurs, rubs, or gallops. PULMONARY: Chest is clear to auscultation, no wheezing or crackles. ABDOMEN: Soft, nontender, nondistended, normoactive bowel sounds. No palpable organomegaly. MUSCULOSKELETAL: No joint swelling or deformity. EXTREMITIES: No cyanosis, clubbing, or pedal edema. NEUROLOGICAL: Gross neurological examination did not reveal any focal deficits. SKIN: No rashes. Assessment and plan Chest pain: Rule out acute coronary syndrome stresses is negative musculoskeletal chest pain, patient had a negative stress test negative CT thorax for pneumonia or pulmonary embolism -Abdominal pain all the workup including CT of the abdomen, urinalysis were negative awaiting vaginal ultrasound that if that's negative patient will be discharged today to follow with PCP and general surgery as an outpatient -Depression -Uterine fibroids -Mild endometrial thickening: Follow-up with MAINTENANCE WORKER as mentioned above Plan - Discharge Summary Discharge Rx Participant: No New Discharge Prescriptions: New traMADol HCL [Ultram] 50 mg PO Q4HR PRN 3 Days #18 tab PRN Reason: Pain No Action Escitalopram [Lexapro] 10 mg PO DAILY Discharge Medication List Escitalopram [Lexapro] 10 mg PO DAILY 09/08/20 [History] traMADol HCL [Ultram] 50 mg PO Q4HR PRN 3 Days #18 tab 09/09/20 [Rx] Follow up Appointment(s)/Referral(s): Nonstaff,Physician [Primary Care Provider] - 3 Days Tahir Hernandez MD [STAFF PHYSICIAN] - 2 Weeks Patient Instructions/Handouts: Chest Pain (ED) Activity/Diet/Wound Care/Special Instructions: call and scheduled transvaginal US call and schedule appointment with Dr Farnsworth for US follow up results/plan activity as tolerated regular diet as tolerated Discharge Disposition: HOME SELF-CARE
== END 2020-09-11 15:25 | disposition home or self-care (01) ==
LOC: EC 09:49 → 6NMEDSUR 13:27
PROVIDERS: ADMIT Hospitalist; ATTEND Hospitalist
DX: R07.9 Chest pain, unspecified (principal); R10.30 Lower abdominal pain, unspecified; D25.9 Leiomyoma of uterus, unspecified; R93.89 Abnormal findings on diagnostic imaging of other specified body structures; R00.1 Bradycardia, unspecified; Z20.822 Contact with and (suspected) exposure to COVID-19; R42 Dizziness and giddiness; R11.0 Nausea; R51.9 Headache, unspecified; K59.00 Constipation, unspecified; F32.9 Major depressive disorder, single episode, unspecified; R10.2 Pelvic and perineal pain; F41.9 Anxiety disorder, unspecified; M54.2 Cervicalgia; M25.511 Pain in right shoulder; M54.6 Pain in thoracic spine; Z79.899 Other long term (current) drug therapy; Z90.49 Acquired absence of other specified parts of digestive tract; Z98.891 History of uterine scar from previous surgery
CPT/HCPCS: 96376 ×3; 96361 ×3; 96374; 96375; 99285; 36415; 93005; 93306; 93351; 85379; 80053 ×2; 82150; 83690; 83735; 84484 ×2; 85025 ×2; 85610; 85730; 81003; 87635; 71046; 76700; 76830; 71275; 74174; G0378 ×4; C9113 ×4; J1170 ×2; Q9967

== ENCOUNTER → 2021-06-29 | Outpatient (CLI) | payer BC, OTHER | END | disposition home or self-care (01) | LOC: LABWHC1 07:04 | PROVIDERS: ATTEND Specialist | DX: R14.0 Abdominal distension (gaseous) (principal) | CPT/HCPCS: 36415; 83690 ==

== ENCOUNTER → 2021-07-20 | Outpatient (CLI) | payer BC, OTHER | END | disposition home or self-care (01) | LOC: LABWHC1 06:56 | PROVIDERS: ATTEND Internal Medicine Gastroenterology | DX: R74.8 Abnormal levels of other serum enzymes (principal) | CPT/HCPCS: 36415; 83516; 86038 ==

== ENCOUNTER → 2021-12-22 | Outpatient (CLI) | payer BC, OTHER ==
[2021-12-22 19:04] LABS: Rheumatoid Factor, Qnt <10 IU/mL (0-15); Uric Acid 5.5 mg/dL (2.9-7.7)
[2021-12-22 20:41] LABS: Cyclic Citrull Pep IgG Unit <0.5 U/mL; Cyclic Citrullinated Pep IgG NEGATIVE (NEGATIVE)
== END | disposition home or self-care (01) ==
LOC: LABWHC1 12:57
PROVIDERS: ATTEND Orthopaedic Surgery Foot and Ankle Surgery
DX: M20.22 Hallux rigidus, left foot (principal); M79.672 Pain in left foot
CPT/HCPCS: 36415; 84550; 85652; 86038; 86200; 86431

== ENCOUNTER 2024-01-22 16:54 | Observation (INO) | payer BC, OTHER ==
--- NOTE | 2024-01-22 17:12 | ED ---
General Adult HPI - General Chief complaint: Chest Pain Stated complaint: chest pain Time Seen by Provider: 01/22/24 16:57 Source: patient Mode of arrival: wheelchair Limitations: no limitations - History of Present Illness Initial comments: Dictation was produced using [employer] dictation software. please excuse any grammatical, word or spelling errors. 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 She does also have a history of pericarditis. Patient states that for the last 12 hours she has had sharp pain to her right chest that radiated into her neck. Denies any numbness tingling or paresthesias. Denies any associated diaphoresis. Does not feel short of breath. She states that her symptoms not worse with deep inspiration. Patient has had negative stress test. Denies any cardiac catheterization in the past. The ROS documented in this emergency department record has been reviewed and confirmed by me. Those systems with pertinent positive or negative responses have been documented in the HPI. All other systems are other negative and/or noncontributory. - Related Data Home Medications Medication Instructions Recorded Confirmed Escitalopram [Lexapro] 10 mg PO DAILY 09/08/20 09/08/20 Previous Rx's Medication Instructions Recorded traMADol HCL [Ultram] 50 mg PO Q4HR PRN 3 Days #18 tab 09/09/20 Allergies Allergy/AdvReac Type Severity Reaction Status Date / Time No Known Allergies Allergy Verified 09/08/20 11:07 Review of Systems ROS Statement: Those systems with pertinent positive or pertinent negative responses have been documented in the HPI. ROS Other: All systems not noted in ROS Statement are negative. Past Medical History Past Medical History: Hyperlipidemia Additional Past Medical History / Comment(s): Pericarditis, cyst pressing on heart, twisted volvulus History of Any Multi-Drug Resistant Organisms: None Reported Past Surgical History: Bowel Resection, Section, Cholecystectomy Additional Past Surgical History / Comment(s): Cyst removed that was pressing on heart Past Psychological History: Anxiety Smoking Status: Never smoker Past Alcohol Use History: Occasional Past Drug Use History: None Reported General Exam - General Exam Comments Initial Comments: PHYSICAL EXAM: General Impression: Alert and oriented x3, not in acute distress HEENT: Normocephalic atraumatic, extra-ocular movements intact, pupils equal and reactive to light bilaterally, mucous membranes moist. Cardiovascular: Heart regular rate and rhythm Chest: Able to complete full sentences, no retractions, no tachypnea Abdomen: abdomen soft, non-tender, non-distended, no organomegaly Musculoskeletal: Pulses present and equal in all extremities, no peripheral edema Motor: no focal deficits noted Neurological: CN II-XII grossly intact, no focal motor or sensory deficits noted Skin: Intact with no visualized rashes Psych: Normal affect and mood Limitations: no limitations Course Vital Signs 01/22/24 01/22/24 01/22/24 16:58 17:30 17:32 Temperature 97.5 F L Pulse Rate 75 63 64 Respiratory 20 16 18 Rate Blood Pressure 130/82 113/68 129/82 O2 Sat by Pulse 98 97 98 Oximetry 01/22/24 01/22/24 18:00 19:00 Temperature Pulse Rate 63 64 Respiratory 17 17 Rate Blood Pressure 117/56 118/75 O2 Sat by Pulse 99 98 Oximetry EKG Findings - EKG Comments: EKG Findings:: I my EKG interpretation: Ventricular rate 64, sinus rhythm,. 121, QRS 90, QTc 425. No MA prolongation, no QTC prolongation, no ST or T-wave changes noted. Overall, this EKG is unremarkable Medical Decision Making - Medical Decision Making Was pt. sent in by a medical professional or institution (, PA, CAMPUS COORDINATOR, urgent care, hospital, or retirement...) When possible be specific @ -No Did you speak to anyone other than the patient for history (EMS, parent, family, police, friend...)? What history was obtained from this source @ -No Did you review nursing and triage notes (agree or disagree)? Why? @ -I reviewed and agree with nursing and triage notes Were old charts reviewed (outside hosp., previous admission, EMS record, old EKG, old radiological studies, urgent care reports/EKG's, retirement records)? Report findings @ -No old charts were reviewed Differential Diagnosis (chest pain, altered mental status, abdominal pain women, abdominal pain men, vaginal bleeding, musculoskeletal, weakness, fever, dyspnea, syncope, headache, dizziness, GI bleed, back pain, seizure, CVA, palpatations, mental health)? @ -Differential Chest Pain: Stable Angina, Unstable Angina, STEMI, NSTEMI Aortic Dissection, Pneumothorax, Musculoskeletal, Esophageal Spasm GERD, Cholecystitis, Pancreatitis, Zoster, this is not meant to be an all-inclusive list. EKG interpreted by me (3pts min.). @ -See above X-rays interpreted by me (1pt min.). @ -Chest x-ray shows no acute processes abdominal x-ray shows no acute processes CT interpreted by me (1pt min.). @ -CT angiography of the chest shows no acute processes U/S interpreted by me (1pt. min.). @ -None done What testing was considered but not performed or refused? (CT, X-rays, U/S, labs)? Why? @ -None What meds were considered but not given or refused? Why? @ -None Was smoking cessation discussed for >3mins.? @ -No Were there social determinants of health that impacted care today? How? (Homelessness, low income, unemployed, alcoholism, drug addiction, transportati on, low edu. Level, literacy, decrease access to med. care, care home, rehab)? @ -No Was there de-escalation of care discussed even if they declined (Discuss DNR or withdrawal of care, Hospice)? DNR status @ -No What co-morbidities impacted this encounter? (DM, HTN, Smoking, COPD, CAD, Cancer, CVA, ARF, Chemo, Hep., AIDS, mental health diagnosis, sleep apnea, morbid obesity)? @ -Hypercholesterolemia Was patient admitted / discharged? Hospital course, mention meds given and route, prescriptions, significant lab abnormalities, going to OR and other pertinent info. @ -50-year-old female presents emergency department atypical chest pain typical features. Vital signs upon arrival are within acceptable limits. Laboratory evaluation is unremarkable. Troponin is negative. Imaging studies are ne gative. D-dimer is negative. No PE or dissection. Disposition options were discussed she is agreeable with observation admission. Cardiology will be consulted. Patient given aspirin. Serial troponins ordered Did you discuss the management of the patient with other professionals (professionals i.e. , PA, CAMPUS COORDINATOR, lab, RT, psych nurse, social insurance administrator, rubber compounder mixer, teacher, bank compliance officer, case managers)? Give summary @ -Case discussed with hospitalist for admission Was critical care preformed (if so, how long)? @ -No Undiagnosed new problem with uncertain prognosis? @ -No Drug Therapy requiring intensive monitoring for toxicity (Heparin, Nitro, Insulin, Cardizem)? @ -No Were any procedures done? @ -No Diagnosis/symptom? Acute, or Chronic, or Acute on Chronic? Uncomplicated (without systemic symptoms) or Complicated (systemic symptoms)? @ -Chest pain Side effects of treatment? @ -No Exacerbation, Progression, or Severe Exacerbation? @ -No Poses a threat to life or bodily function? How? (Chest pain, [place], DC, pneumonia, PE, COPD, DKA, ARF, appy, cholecystitis, CVA, Diverticulitis, Homicidal, Suicidal, threat to staff... and all critical care pts) @ -yes - Lab Data Result diagrams: 01/22/24 17:26 01/22/24 17:26 Lab Results 01/22/24 01/22/24 01/22/24 Range/Units 17:26 17:26 17:26 WBC 9.1 (3.8-10.6) k/uL RBC 4.94 (3.80-5.40) m/uL Hgb 14.4 (11.4-16.0) gm/dL Hct 43.1 (34.0-46.0) % MCV 87.2 (80.0-100.0) fL MCH 29.0 (25.0-35.0) pg MCHC 33.3 (31.0-37.0) g/dL RDW 12.6 (11.5-15.5) % Plt Count 287 (150-450) k/uL MPV 6.3 Neutrophils % 50 % Lymphocytes % 37 % Monocytes % 6 % Eosinophils % 4 % Basophils % 1 % Neutrophils # 4.6 (1.3-7.7) k/uL Lymphocytes # 3.4 (1.0-4.8) k/uL Monocytes # 0.5 (0-1.0) k/uL Eosinophils # 0.4 (0-0.7) k/uL Basophils # 0.1 (0-0.2) k/uL PT 10.6 (10.0-12.5) sec INR 1.0 (<1.2) APTT 26.6 (22.0-30.0) sec D-Dimer 0.20 (<0.60) mg/L FEU Sodium 137 (137-145) mmol/L Potassium 4.1 (3.5-5.1) mmol/L Chloride 104 (98-107) mmol/L Carbon Dioxide 27 (22-30) mmol/L Anion Gap 6 mmol/L BUN 16 (7-17) mg/dL Creatinine 0.77 (0.52-1.04) mg/dL Est GFR (CKD-EPI)AfAm >90 (>60 ml/min/1.73 sqM) Est GFR (CKD-EPI)NonAf 85 (>60 ml/min/1.73 sqM) Glucose 113 H (74-99) mg/dL Calcium 9.2 (8.4-10.2) mg/dL Magnesium 2.0 (1.6-2.3) mg/dL Total Bilirubin 0.5 (0.2-1.3) mg/dL AST 24 (14-36) U/L ALT 11 (4-34) U/L Alkaline Phosphatase 103 (38-126) U/L Troponin I (0.000-0.034) ng/mL Total Protein 7.0 (6.3-8.2) g/dL Albumin 4.2 (3.5-5.0) g/dL 01/22/24 Range/Units 17:26 WBC (3.8-10.6) k/uL RBC (3.80-5.40) m/uL Hgb (11.4-16.0) gm/dL Hct (34.0-46.0) % MCV (80.0-100.0) fL MCH (25.0-35.0) pg MCHC (31.0-37.0) g/dL RDW (11.5-15.5) % Plt Count (150-450) k/uL MPV Neutrophils % % Lymphocytes % % Monocytes % % Eosinophils % % Basophils % % Neutrophils # (1.3-7.7) k/uL Lymphocytes # (1.0-4.8) k/uL Monocytes # (0-1.0) k/uL Eosinophils # (0-0.7) k/uL Basophils # (0-0.2) k/uL PT (10.0-12.5) sec INR (<1.2) APTT (22.0-30.0) sec D-Dimer (<0.60) mg/L FEU Sodium (137-145) mmol/L Potassium (3.5-5.1) mmol/L Chloride (98-107) mmol/L Carbon Dioxide (22-30) mmol/L Anion Gap mmol/L BUN (7-17) mg/dL Creatinine (0.52-1.04) mg/dL Est GFR (CKD-EPI)AfAm (>60 ml/min/1.73 sqM) Est GFR (CKD-EPI)NonAf (>60 ml/min/1.73 sqM) Glucose (74-99) mg/dL Calcium (8.4-10.2) mg/dL Magnesium (1.6-2.3) mg/dL Total Bilirubin (0.2-1.3) mg/dL AST (14-36) U/L ALT (4-34) U/L Alkaline Phosphatase (38-126) U/L Troponin I <0.012 (0.000-0.034) ng/mL Total Protein (6.3-8.2) g/dL Albumin (3.5-5.0) g/dL Disposition Clinical Impression: Chest pain Disposition: ADMITTED IP TO THIS HOSP Condition: Fair Referrals: Jimmy Henry DO [Primary Care Provider] - 1-2 days Decision Time: 19:23
[2024-01-22] MEDS: MORPHINE SULFATE 4 MG/ML SYRINGE IV STA (17:24)
[2024-01-22 17:37] LABS: Basophils # (A) 0.1 k/uL (0-0.2); Basophils % (A) 1 %; Eosinophils # (A) 0.4 k/uL (0-0.7); Eosinophils % (A) 4 %; HCT 43.1 % (34.0-46.0); HGB 14.4 gm/dL (11.4-16.0); Lymphocytes # (A) 3.4 k/uL (1.0-4.8); Lymphocytes % (A) 37 %; MCHC 33.3 g/dL (31.0-37.0); MCV 87.2 fL (80.0-100.0); Mean Platelet Volume 6.3; Monocytes # (A) 0.5 k/uL (0-1.0); Monocytes % (A) 6 %; Neutrophils # (A) 4.6 k/uL (1.3-7.7); Neutrophils % (A) 50 %; Platelet Count 287 k/uL (150-450); RBC 4.94 m/uL (3.80-5.40); RDW 12.6 % (11.5-15.5); WBC 9.1 k/uL (3.8-10.6)
[2024-01-22 17:51] LABS: ALT 11 U/L (4-34); AST 24 U/L (14-36); African American GFR (CKD) >90 (>60 ml/min/1.73 sqM); Albumin 4.2 g/dL (3.5-5.0); Alkaline Phosphatase 103 U/L (38-126); Anion Gap 6 mmol/L; Blood Urea Nitrogen 16 mg/dL (7-17); Calcium 9.2 mg/dL (8.4-10.2); Carbon Dioxide 27 mmol/L (22-30); Chloride 104 mmol/L (98-107); Glucose 113 mg/dL (74-99); Non-African American GFR(CKD) 85 (>60 ml/min/1.73 sqM); Potassium 4.1 mmol/L (3.5-5.1); Sodium 137 mmol/L (137-145); Total Bilirubin 0.5 mg/dL (0.2-1.3)
[2024-01-22 18:02] LABS: Partial Thromboplastin Time 26.6 sec (22.0-30.0); Prothrombin Time 10.6 sec (10.0-12.5)
--- NOTE | 2024-01-22 18:21 | XR ---
EXAMINATION TYPE: XR abdomen 1V DATE OF EXAM: 01/22/2024 5:43 PM COMPARISON: None CLINICAL INDICATION: Female, 58 years old with history of chest pain; [facility] TECHNIQUE: One radiographic view of the abdomen was obtained. FINDINGS: The bowel gas pattern is nonspecific without dilated loops of small or large bowel. . Fecal material and gas are demonstrated throughout the colon and rectum. There is no evidence for organomegaly or pneumoperitoneum. The osseous structures are intact. Pelvi c phleboliths are present. Cholecystectomy clips. IMPRESSION: Nonspecific bowel gas pattern without radiographic evidence for acute process. [facility], , 01/22/2024 6:19 PM
--- NOTE | 2024-01-22 18:22 | XR ---
EXAMINATION TYPE: XR chest 2V DATE OF EXAM: 01/22/2024 5:43 PM COMPARISON: Chest radiographs from 09/08/2020. CLINICAL INDICATION: Female, 58 years old with history of Chest Pain; [facility] TECHNIQUE: XR chest 2V Frontal and lateral views of the chest. FINDINGS: Lungs/Pleura: There is no evidence of pleural effusion, focal consolidation, or pneumothorax. Pulmonary vascularity: Unremarkable. Heart/mediastinum: Cardiomediastinal silhouette is unremarkable. Musculoskeletal: No acute osseous pathology. Other findings: None IMPRESSION: No acute cardiopulmonary disease/process. [facility], , 01/22/2024 6:19 PM
--- NOTE | 2024-01-22 19:00 | CT ---
EXAMINATION TYPE: CT angio chest DATE OF EXAM: 01/22/2024 6:37 PM COMPARISON: 09/08/2020 01/22/2024. CLINICAL INDICATION: Female, 58 years old with history of tearing chest pain, suspect dissection; asuncion st pain TECHNIQUE/CONTRAST: CTA scan of the thorax is performed without and with IV Contrast, patient injected with 100 ml mL of Isovue 370, MIP images are created and reviewed these are created on a separate workstation.. CT DLP: 516.6 mGycm, Automated exposure control for dose reduction was used. FINDINGS: Pulmonary Artery: There is no evidence for a filling defect within the pulmonary vasculature to sugge st acute pulmonary embolism. The pulmonary artery is of normal size. Lungs/Pleura: No evidence of focal consolidation, pleural effusion or pneumothorax. Scattered calcifi ed granulomas in the left upper lung. Airway: Large airways are patent. Heart: Heart is within normal limits for size. Vasculature: No evidence for intramural hematoma on noncontrast imaging. No evidence of intimal flap to suggest dissection. No aneurysm identified. Scattered atherosclerotic disease. There is no evidenc e for a filling defect within the pulmonary vasculature to suggest acute pulmonary embolism. The pul monary artery is of normal size. Mediastinum: No gross evidence of adenopathy. Partially calcified lymph nodes in the mediastinum. Musculoskeletal: No acute osseous abnormalities Soft Tissues/lymph nodes: Unremarkable. Lower neck: No significant findings. Upper Abdomen: No significant findings. IMPRESSION: No evidence for dissection, pulmonary embolus or acute thoracic process. [facility], , 01/22/2024 6:58 PM
[2024-01-22] MEDS ORDERED: NITROGLYCERIN SL TABS 0.4 MG TAB SUBLINGUAL PRN (19:19)
[2024-01-22] MEDS: ASPIRIN 81 MG PO STA (19:28)
[2024-01-22] MEDS: KETOROLAC 15 MG/ML 1 ML VIAL IVP STA (19:29)
--- NOTE | 2024-01-23 00:45 | P.HPIM ---
History of Present Illness H&P Date: 01/22/24 Chief Complaint: chest pain Glenny is a 58-year-old woman with a history of high blood pressure and high cholesterol. "I was taking a nap and I woke up and started from the nap at approximately 4 and it was really horrible chest pain right here in the front and in the back on the right shoulder blade and nausea." She reports that her chest pain began this morning after waking from a nap at approximately 4 PM. The pain was described as horrible and located in the front of the chest and in the back near the right shoulder blade, accompanied by nausea. She states that she has had prior incidents of unexplained symptoms relating to her heart but clarifies those were not heart attack symptoms. Notably, two years ago, she had a cyst pressing against her heart that required surgical intervention. The patient denies any recent travel, significant lifestyle changes, or new food exposures, but acknowledges that she had a salad for lunch which she wonders might have upset her stomach. She reports no recent fevers, chills, cough, diarrhea, bleeding, or burning on urination, and denies any ongoing physical limitations due to chest pain. The only treatment received thus far is pain relief provided by hospital staff upon arrival. Glenny lives independently and performs all activities of daily living without assistance. She occasionally engages in social drinking but denies the use of tobacco or illicit drugs. 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 Review of systems Status post surgical intervention for cyst on heart in 2020. Status post surgical resection of twisted volvulus of the large intestine, year not specified. Cardiovascular - reports significant chest pain, nausea; denies shortness of breath or other cardiac symptoms. Gastrointestinal - mild nausea but denies vomiting, diarrhea, or abdominal pain. Neurological - denies headache, weakness, or sensory disturbances. Musculoskeletal - denies joint or muscle pain. Respiratory - denies cough or difficulty breathing. Constitutional - denies fever or chills. PMHx No history of diabetes, stroke, or previous heart attack. Denies other significant health conditions. No known lab values provided from previous diagnoses. on exam Constitutional: No acute distress, conversant, pleasant Eyes: Anicteric sclerae, moist conjunctiva, Pupils equal round reactive to light ENMT: NC/AT Oropharynx clear, no erythema, or exudates Neck: Supple, no masses, or JVD No carotid bruits No thyromegaly Lungs: Clear to auscultation Clear to percussion Normal respiratory effort, no accessory muscle use Cardiovascular: Heart regular in rate and rhythm, No murmurs, gallops, or rubs No peripheral edema Abdominal: Soft Nontender, no guarding, rebound or rigidity Abdomen moving with respiration Normoactive bowel sounds Extremities: No digital cyanosis No clubbing Pedal pulses intact and symmetrical Radial pulses intact and symmetrical No calf tenderness Psychiatric: Alert and oriented to person, place and time Appropriate affect fair judgement Neuro Muscles Strength 5/5 in all 4 extremities Sensation to light touch grossly present throughout Cranial nerves II-XII grossly intact Assessment and plan 58-year-old female coming in with chest pain. Discussed case with ED doctor and accepted the admission for atypical chest pain Rule out acute coronary syndrome with anticipated length of stay less than 2 midnights Atypical chest pain Troponins negative continue to trend EKG no acute ST changes CT scan of the chest showed no evidence of aortic dissection pulmonary embolus or any acute thoracic process Aspirin 325 daily Check lipid panel Cardiology consult Pain control Supplemental oxygen as needed Full code DVT prophylaxis heparin subcu 3 times daily tight as needed Blood work overall unremarkable D-dimer negative with 0.2, white count 9.1 unremarkable hemoglobin 14.4 within normal limits Renal function unremarkable sodium 137 potassium 4.1 BUN 16 creatinine 0.7 Past Medical History Past Medical History: Hyperlipidemia Additional Past Medical History / Comment(s): Pericarditis, cyst pressing on heart, twisted volvulus History of Any Multi-Drug Resistant Organisms: None Reported Past Surgical History: Bowel Resection, Section, Cholecystectomy Additional Past Surgical History / Comment(s): Cyst removed that was pressing on heart Past Psychological History: Anxiety Smoking Status: Never smoker Past Alcohol Use History: Occasional Past Drug Use History: None Reported Medications and Allergies Home Medications Medication Instructions Recorded Confirmed Type No Known Home Medications 01/22/24 01/22/24 History Allergies Allergy/AdvReac Type Severity Reaction Status Date / Time aloe Allergy Anaphylaxis Verified 01/22/24 19:38 CACTUS Allergy Anaphylaxis Uncoded 01/22/24 19:38 Physical Exam Vitals: Vital Signs Temp Pulse Resp BP Pulse Ox 01/22/24 23:00 69 16 102/65 98 01/22/24 22:30 66 16 107/56 97 01/22/24 22:00 60 14 112/70 97 01/22/24 21:00 60 19 105/71 98 01/22/24 20:30 60 17 114/80 97 01/22/24 20:00 54 L 20 116/76 96 01/22/24 19:00 64 17 118/75 98 01/22/24 18:00 63 17 117/56 99 01/22/24 17:32 64 18 129/82 98 01/22/24 17:30 63 16 113/68 97 01/22/24 16:58 97.5 F L 75 20 130/82 98 Intake and Output 01/22/24 01/22/24 01/23/24 14:59 22:59 06:59 Other: Weight 77.111 kg Results CBC & Chem 7: 01/22/24 17:26 01/22/24 17:26 Labs: Abnormal Lab Results - Last 24 Hours (Table) 01/22/24 Range/Units 17:26 Glucose 113 H (74-99) mg/dL
[2024-01-23] MEDS: HYDROcodone/APAP 5-325MG 1 EACH TAB PO PRN (05:39)
[2024-01-23] MEDS: ONDANSETRON 4 MG/2 ML VIAL IVP PRN (05:40)
[2024-01-23 08:40] LABS: Chol/HDL Ratio 5.38 Ratio; LDL Cholesterol,Calculated 171.1 mg/dL (0.0-131.0)
--- NOTE | 2024-01-23 09:55 | P.CRDCN ---
History of Present Illness Consult date: 01/23/24 Consult reason: chest pain History of present illness: This is a 58-year-old female with past medical history of hyperlipidemia, pericarditis, cyst adjacent to her heart. She follows with Dr. Henry in [place]. We have been asked to evaluate the patient for chest pain. She states she started having a stabbing type chest pain that went to her back and the right shoulder blade and then she was feeling like an elephant was on the middle of her chest. She states the pain is not changed since she came into the hospital and still there. She had an episode where it was excruciating with shortness of breath that lasted for about 5 minutes. Pain is worse with deep breathing. Blood pressure 107/54, heart rate 56, pulse ox 98% on room air. EKG: Sinus rhythm with no acute ST-T wave changes. Chest x-ray: No acute process CTA of the chest no evidence of dissection, pulmonary embolism or acute thoracic process. KUB: Nonspecific bowel gas pattern, no acute process Laboratory studies: CBC, D-dimer, electrolytes renal function and liver function test are all within normal limits. Troponin negative x 3 draws. Triglycerides 207, cholesterol 271, LDL 171, HDL 48. Home cardiac medications: None Review Of Systems: At the time of my exam: CONSTITUTIONAL: Denies fever or chills. HEENT: Denies blurred vision, vision changes, or eye pain. Denies hemoptysis CARDIOVASCULAR: Reports chest pain. Denies orthopnea. Denies PND. Denies pa lpitations RESPIRATORY: Denies shortness of breath. GASTROINTESTINAL: Denies abdominal pain. Denies nausea or vomiting. HEMATOLOGIC: Denies bleeding disorders. GENITOURINARY: Denies any blood in urine. SKIN: Denies puritis. Denies rash. Physical examination: Gen: This is a 58-year-old female in no acute distress VS: reviewed HEENT: Head is atraumatic, normocephalic. Pupils equal, round. Sclerae is anicteric. NECK: Supple. No JVD. LUNGS: Clear to auscultation. No wheezes or rhonchi. No intercostal retractions. HEART: Regular rate and rhythm. No murmur. ABDOMEN: Soft No tenderness. EXTREMITIES: No pedal edema. No calf tenderness. Dorsalis pedis +2 bilaterally NEUROLOGICAL: Patient is awake, alert and oriented x3. 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 in [place]. Plan: Change aspirin to 81 mg Obtain records from Dr. Henry of most recent stress test and cyst surgery Obtain sed rate Obtain 2-D echocardiogram and Doppler study to assess cardiac structure and function Further recommendations to follow based upon clinical course Thank you kindly for this consultation. Nurse practitioner note has been reviewed, I agree with documented findings and plan of care. Patient was seen and examined. Past Medical History Past Medical History: Hyperlipidemia Additional Past Medical History / Comment(s): Pericarditis, cyst pressing on heart, twisted volvulus History of Any Multi-Drug Resistant Organisms: None Reported Past Surgical History: Bowel Resection, Section, Cholecystectomy Additional Past Surgical History / Comment(s): Cyst removed that was pressing on heart Past Psychological History: Anxiety Smoking Status: Never smoker Past Alcohol Use History: Occasional Past Drug Use History: None Reported Medications and Allergies Home Medications Medication Instructions Recorded Confirmed Type No Known Home Medications 01/22/24 01/22/24 History Allergies Allergy/AdvReac Type Severity Reaction Status Date / Time aloe Allergy Anaphylaxis Verified 01/22/24 19:38 CACTUS Allergy Anaphylaxis Uncoded 01/22/24 19:38 Physical Exam Vitals: Vital Signs Temp Pulse Resp BP Pulse Ox 01/23/24 06:00 56 L 6 L 107/54 98 01/23/24 05:00 61 20 101/63 98 01/23/24 04:00 59 L 13 103/69 97 01/23/24 03:00 57 L 15 103/68 95 01/23/24 02:30 63 15 106/65 95 01/23/24 02:00 61 16 98/71 95 01/23/24 01:30 59 L 16 97/61 95 01/23/24 01:00 56 L 16 103/62 95 01/23/24 00:30 56 L 16 103/62 96 01/23/24 00:00 60 14 97/72 95 01/22/24 23:30 59 L 18 100/59 96 01/22/24 23:00 69 16 102/65 98 01/22/24 22:30 66 16 107/56 97 01/22/24 22:00 60 14 112/70 97 01/22/24 21:00 60 19 105/71 98 01/22/24 20:30 60 17 114/80 97 01/22/24 20:00 54 L 20 116/76 96 01/22/24 19:00 64 17 118/75 98 01/22/24 18:00 63 17 117/56 99 01/22/24 17:32 64 18 129/82 98 01/22/24 17:30 63 16 113/68 97 01/22/24 16:58 97.5 F L 75 20 130/82 98 Intake and Output 01/22/24 01/23/24 01/23/24 22:59 06:59 14:59 Other: Weight 77.111 kg Results 01/22/24 17:26 01/22/24 17:26 Cardiac Enzymes 01/22/24 01/22/24 01/22/24 Range/Units 17:26 17:26 21:48 AST 24 (14-36) U/L Troponin I <0.012 0.014 (0.000-0.034) ng/mL 01/23/24 Range/Units 01:44 AST (14-36) U/L Troponin I <0.012 (0.000-0.034) ng/mL Coagulation 01/22/24 Range/Units 17:26 PT 10.6 (10.0-12.5) sec APTT 26.6 (22.0-30.0) sec CBC 01/22/24 Range/Units 17:26 WBC 9.1 (3.8-10.6) k/uL RBC 4.94 (3.80-5.40) m/uL Hgb 14.4 (11.4-16.0) gm/dL Hct 43.1 (34.0-46.0) % Plt Count 287 (150-450) k/uL Comprehensive Metabolic Panel 01/22/24 Range/Units 17:26 Sodium 137 (137-145) mmol/L Potassium 4.1 (3.5-5.1) mmol/L Chloride 104 (98-107) mmol/L Carbon Dioxide 27 (22-30) mmol/L BUN 16 (7-17) mg/dL Creatinine 0.77 (0.52-1.04) mg/dL Glucose 113 H (74-99) mg/dL Calcium 9.2 (8.4-10.2) mg/dL AST 24 (14-36) U/L ALT 11 (4-34) U/L Alkaline Phosphatase 103 (38-126) U/L Total Protein 7.0 (6.3-8.2) g/dL Albumin 4.2 (3.5-5.0) g/dL Current Medications Generic Name Dose Route Start Last Admin Trade Name Freq PRN Reason Stop Dose Admin Hydrocodone Bitart/Acetaminophen 1 each 01/23/24 05:22 01/23/24 05:39 Hydrocodone/Apap 5-325mg 1 Each Tab PO 1 each Q6HR PRN Administration Pain Aspirin 325 mg 01/23/24 09:00 Aspirin 325 Mg Tab PO DAILY [facility] Heparin Sodium (Porcine) 5,000 unit 01/23/24 08:00 Heparin Sodium,Porcine 5,000 Unit/Ml 1 Ml Vial SQ Q8HR SHANNA Nitroglycerin 0.4 mg 01/22/24 19:19 Nitroglycerin Sl Tabs 0.4 Mg Tab SUBLINGUAL Q5M PRN Chest Pain Ondansetron HCl 4 mg 01/23/24 05:22 01/23/24 05:40 Ondansetron 4 Mg/2 Ml Vial IVP 4 mg Q8HR PRN Administration Nausea And Vomiting Intake and Output 01/22/24 01/23/24 01/23/24 22:59 06:59 14:59 Other: Weight 77.111 kg 01/22/24 17:26 01/22/24 17:26
[2024-01-23] MEDS: KETOROLAC 15 MG/ML 1 ML VIAL IVP STA (09:57)
[2024-01-23] MEDS: ORPHENADRINE 30 MG/ML 2 ML VIAL IVP STA (09:57)
[2024-01-23] MEDS: HEPARIN SODIUM,PORCINE 5,000 UNIT/ML 1 ML VIAL SQ SCH (09:58)
[2024-01-23] MEDS: ASPIRIN 325 MG TAB PO SCH (10:00)
[2024-01-23 11:41] LABS: African American GFR (CKD) 84 (>60 ml/min/1.73 sqM); Blood Urea Nitrogen 17 mg/dL (7-17); Non-African American GFR(CKD) 73 (>60 ml/min/1.73 sqM)
--- NOTE | 2024-01-23 14:27 | P.PN ---
Subjective Progress Note Date: 01/23/24 Hospital course: Patient is a very pleasant 58-year-old female with a past medical history of hyperlipidemia, pericarditis, and hx of cyst adjacent to her heart status post removal. She presented to the emergency department on 01/22/2024 with a chief complaint of chest pain. Patient reporting sharp stabbing chest pain radiating into her back and right shoulder accompanied by stiff/sore neck awakening her from sleep. She reports pain is 10 out of 10 times. She denies increased pain with movement or upon taking a deep breath. She does admit to accompanying shortness of breath. Upon arrival to our facility, patient underwent evaluation in the emergency department. Vital signs upon arrival show blood pressure 130/82, heart rate 75, respiratory rate 20, temp 97.5 F, and SpO2 of 98% on room air. EKG completed showing normal sinus rhythm at 61 bpm with no noted T wave or ST abnormality showing no signs of acute ischemia upon personal review and interpretation. Labs completed and reviewed. CBC unremarkable. Coagulation profile normal findings. D-dimer negative at 0.20. BMP unremarkable. Blood glucose 113. Magnesium 2.0. Troponin was negative at less than 0.012. Patient was admitted under our services with consultation to cardiology. Troponins were trended overnight resulting at <0.012, 0.014, and < 0.012. Lipid profile showing elevated triglycerides of 207, total cholesterol of 261, LDL of 171.1, and VLDL of 41.40. Physical exam: Vital signs reviewed and stable. General: Nontoxic, no distress and appears stated age. Derm: Skin warm and dry, normal coloration for ethnicity. Head: Atraumatic, normocephalic and symmetric. Eyes: EOM's intact, no lid lag, and anicteric sclera Mouth: no lip lesions, mucus membranes moist Cardiovascular: regular rate and rhythm with normal S1S2, no murmur, positive posterior tibial pulses bilaterally, and cap refill < 2 seconds. Lungs: Respirations even, regular, and unlabored on room air. Lungs CTA bilaterally, no rhonchi, no rales, no wheezing, and no accessory muscle usage. Abdominal: soft, nontender to palpation, no guarding, no appreciable organomegaly Ext: ROM intact. No gross muscle atrophy, no edema, no contractures Neuro: Speech clear, face symmetrical and CN II-XII grossly intact with no noted focal neuro deficits Psych: Alert and oriented to person, place, time, and situation. Appropriate and pleasant affect. Assessment and Plan of Care: Chest pain, acute coronary event ruled out History of pericarditis History of cyst adjacent to heart status post removal Hyperlipidemia -Cardiology consulted, appreciate recommendations -Telemetry monitoring - Troponins were trended overnight resulting at <0.012, 0.014, and < 0.012. -Lipid profile showing elevated triglycerides of 207, total cholesterol of 261, LDL of 171.1, and VLDL of 41.40. Patient started on atorvastatin 40 mg nightly. -Continue aspirin 81 mg daily and atorvastatin 40 mg HS -Echocardiogram to be completed -Order placed for CT cervical and thoracic spine. Data reviewed: Labs reviewed. Troponins were trended overnight resulting at <0.012, 0.014, and < 0.012. Lipid profile showing elevated triglycerides of 207, total cholesterol of 261, LDL of 171.1, and VLDL of 41.40. Repeat morning EKG showing sinus bradycardia at 56 bpm with no noted T wave or ST abnormality showing no signs of acute ischemia upon personal review and interpretation. CODE STATUS: Full code DVT prophylaxis: Heparin Anticipated discharge date: Pending clinical course, likely within the next [address]: Home Patient was seen independently by Nurse Pracitioner. This document was prepared using [employer] dictation software. Please allow for errors in traveling sales executive, while rare they do occur. Giuliano Becker NP rendered care for this patient independently, reviewed the findings and plan as documented in the note above and agree with plan. I did not physically speak with or examine the patient on this date. Objective - Vital Signs Vital signs: Vital Signs Temp 98.3 F 01/23/24 08:08 Pulse 59 L 01/23/24 08:08 Resp 16 01/23/24 08:08 BP 91/76 01/23/24 08:08 Pulse Ox 98 01/23/24 08:08 FiO2 Intake & Output 01/22/24 01/23/24 01/23/24 18:59 06:59 18:59 Weight 77.111 kg - Labs CBC & Chem 7: 01/22/24 17:26 01/23/24 10:56 Labs: Abnormal Lab Results - Last 24 Hours (Table) 01/22/24 01/23/24 Range/Units 17:26 01:44 Glucose 113 H (74-99) mg/dL Triglycerides 207.00 H (0.00-149.00) mg/dL Cholesterol 261.00 H (0.00-200.00) mg/dL LDL Cholesterol, Calc 171.1 H (0.0-131.0) mg/dL VLDL Cholesterol, Calc 41.40 H (5.00-40.00) mg/dL
[2024-01-23] MEDS: HYDROmorphone 1 MG/ML 1 ML SYRINGE IVP PRN (16:04)
--- NOTE | 2024-01-23 19:19 | CT ---
EXAMINATION TYPE: CT cervical spine wo/w con DATE OF EXAM: 01/23/2024 7:01 PM COMPARISON: None. CLINICAL INDICATION: Female, 58 years old with history of pain in neck, right shoulder and chest into back, Pain in neck, right shoulder and chest into back., Lung cancer screening, History of tobacco u se. TECHNIQUE: CT of the cervical spine is performed in the axial plane at 2 mm thick sections. Reconstr ucted images in the coronal, and sagittal plane are reviewed on the computer. Contrast used:100ml mL of Isovue 300 with IV Contrast, (none if empty) Oral contrast used: (none if empty) CT DLP: 883.4 mGycm, Automated exposure control for dose reduction was used. FINDINGS: No acute fractures are evident. Vertebral body alignment is normal. Diffuse loss of disc height throughout the cervical spine. Some posterior endplate spurring is presen t at C3-4, C4-5 C5-6. Small anterior vertebral body spurs are present throughout the cervical spine Vertebral body heights are preserved. Central endplate spurring is present C5-6 with moderate anterior thecal sac compression. Cord contact may be present. AP spinal canal narrowing 0.6 cm is present. Central disc bulge may be present C3-4 with moderate anterior thecal sac compression. Endplate spurring and disc material is present C4-5 w ith moderate anterior compression. Canal narrowing may be present. MRI can be performed if closer lyndon luation would be benefit. Bilateral severe foraminal stenosis due to uncovertebral joint hypertrophy is present C3-4, C4-5 C5-6 IMPRESSION: 1. Diffuse degenerative disc changes throughout the cervical spine. 2. Endplate spurring C3-4 C4-5 and C5-6 with anterior thecal sac compression. This is greatest at C5- 6 contributing to severe spinal canal stenosis at 0.6 cm posterior to the endplate spur. 3. Cervical spine severe foraminal stenosis C3-4 through C5-6. [facility], , 01/23/2024 7:17 PM
[2024-01-23] MEDS: ATORVASTATIN 40 MG TAB PO SCH (21:37)
[2024-01-24] MEDS: ASPIRIN 81 MG PO SCH (08:29)
[2024-01-24 08:31] LABS: HCT 43.5 % (37.2-46.3); HGB 14.4 g/dL (12.0-15.0); MCH 29.6 pg (27.0-32.0); MCHC 33.1 g/dL (32.0-37.0); MCV 89.3 FL (80.0-97.0); Mean Platelet Volume 9.7 FL (9.5-12.2); NRBC Per 100 WBC 0 X 10*3/uL (0.00-0.01); Platelet Count 266 X 10*3/uL (140-440); RBC 4.87 X 10*6/uL (4.10-5.20); RDW 12.5 % (11.5-14.5); WBC 8.61 X 10*3/uL (4.50-10.00)
[2024-01-24 09:06] LABS: BUN/Creat Ratio 15.67 Ratio (12.00-20.00); Blood Urea Nitrogen 14.1 mg/dL (9.0-27.0); Calcium 8.7 mg/dL (8.7-10.3); Carbon Dioxide 23.1 mmol/L (21.6-31.8); Chloride 103 mmol/L (96-109); Glucose 117 mg/dL (70-110); Magnesium 2.1 mg/dL (1.5-2.4); Potassium 4.6 mmol/L (3.5-5.5); Sodium 136 mmol/L (135-145)
[2024-01-24] MEDS: DEXAMETHASONE SOD PHOSPHATE 10 MG/ML 1 ML VIAL IVP STA (09:14)
[2024-01-24] MEDS: ORPHENADRINE 30 MG/ML 2 ML VIAL IVP STA (09:14)
[2024-01-24] MEDS: KETOROLAC 15 MG/ML 1 ML VIAL IVP STA (09:14)
--- NOTE | 2024-01-24 11:09 | P.PN ---
Subjective Progress Note Date: 01/24/24 Consult reason: chest pain History of present illness: This is a 58-year-old female with past medical history of hyperlipidemia, pericarditis, cyst adjacent to her heart. She follows with Dr. Henry in [place]. We have been asked to evaluate the patient for chest pain. She states she started having a stabbing type chest pain that went to her back and the right shoulder blade and then she was feeling like an elephant was on the middle of her chest. She states the pain is not changed since she came into the hospital and still there. She had an episode where it was excruciating with shortness of breath that lasted for about 5 minutes. Pain is worse with deep breathing. Blood pressure 107/54, heart rate 56, pulse ox 98% on room air. EKG: Sinus rhythm with no acute ST-T wave changes. Chest x-ray: No acute process CTA of the chest no evidence of dissection, pulmonary embolism or acute thoracic process. KUB: Nonspecific bowel gas pattern, no acute process Laboratory studies: CBC, D-dimer, electrolytes renal function and liver function test are all within normal limits. Troponin negative x 3 draws. Triglycerides 207, cholesterol 271, LDL 171, HDL 48. Home cardiac medications: None 01/24/2024 Patient is seen and examined. She is complaining of continued stabbing pain in the right shoulder blade. No real chest pain. Blood pressure 106/69, heart rate 61, pulse ox 98% on room air. Repeat CBC, BMP are unremarkable. Sed rate 2. Patient had cervical CAT scan that showed diffuse disc changes, stenosis. Consult was added for Dr. Maharaj. Echocardiogram is pending. Records reviewed from her hide stretcher hand: Stress echocardiogram performed in 2018 revealed EF 65% and no evidence of ischemia. Echocardiogram performed 2018 revealed EF of 60 to 65%, trace mitral, tricuspid and pulmonic regurgitation. Right ventricular systolic pressure estimated 26 mmHg. No pericardial effusion. Physical examination: Gen: This is a 58-year-old female in no acute distress VS: reviewed HEENT: Head is atraumatic, normocephalic. Pupils equal, round. Sclerae is anicteric. NECK: Supple. No JVD. LUNGS: Clear to auscultation. No wheezes or rhonchi. No intercostal retractions. HEART: Regular rate and rhythm. No murmur. ABDOMEN: Soft No tenderness. EXTREMITIES: No pedal edema. No calf tenderness. Dorsalis pedis +2 bilaterally NEUROLOGICAL: Patient is awake, alert and oriented x3. Assessment: Atypical chest pain, acute coronary syndrome ruled out Hyperlipidemia History of pericarditis History of cyst adjacent to her heart status post resection at [facility] in [place]. Plan: Change aspirin to 81 mg Schedule patient for stress echocardiogram today Obtain 2-D echocardiogram and Doppler study to assess cardiac structure and function If both echocardiogram and stress echocardiogram are unremarkable, patient is cleared for discharge and may follow-up with her hide stretcher hand in 1 to 2-weeks. Nurse practitioner note has been reviewed, I agree with documented findings and plan of care. Patient was seen and examined. Objective - Vital Signs Vital signs: Vital Signs Temp 97.9 F 01/24/24 07:03 Pulse 61 01/24/24 07:03 Resp 18 01/24/24 07:03 BP 106/69 01/24/24 07:03 Pulse Ox 98 01/24/24 07:03 FiO2 Intake & Output 01/23/24 01/24/24 01/24/24 18:59 06:59 18:59 Intake Total 118 Balance 118 Weight 77.111 kg Intake: Oral 118 Other: # Voids 1 2 - Labs CBC & Chem 7: 01/24/24 04:20 01/24/24 04:20
--- NOTE | 2024-01-24 12:00 | CA ---
Transthoracic Echo Report Name: Glenny Zimmerman Age: 58 Gender: F : 1965 Exam Date: 01/23/2024 16:22 Exam Location: [facility] Ht (in): 65 Wt (lb): 170 Ordering Physician: Ruby Harvey Attending/Referring Phys: [id number], Candice Clerk General Office Nicki Buricaga RDCS Procedure CPT: Indications: LVF, hx of cyst adjacent to heart and pericarditis Cardiac Hx: Technical Quality: Fair Contrast 1: Total Dose (mL): Contrast 2: Total Dose (mL): MEASUREMENTS (Male / Female) Normal Values 2D ECHO LV Diastolic Diameter PLAX 4.6 cm 4.2 - 5.9 / 3.9 - 5.3 cm LV Systolic Diameter PLAX 3.0 cm IVS Diastolic Thickness 0.4 cm 0.6 - 1.0 / 0.6 - 0.9 cm LVPW Diastolic Thickness 0.8 cm 0.6 - 1.0 / 0.6 - 0.9 cm LV Relative Wall Thickness 0.3 LVOT Diameter 1.8 cm LV Diastolic Volume MOD BP 74.5 cm??? 67 - 155 / 56 - 104 cm??? LV Systolic Volume MOD BP 27.6 cm??? 22 - 58 / 19 - 49 cm??? LV Ejection Fraction MOD BP 62.9 % >= 55 % LV Cardiac Index MOD BP 1529.3 cm???/min???m??? LV Diastolic Volume MOD 4C 71.0 cm??? LV Systolic Volume MOD 4C 28.1 cm??? LV Ejection Fraction MOD 4C 60.4 % LV Cardiac Index MOD 4C 1398.1 cm???/min???m??? LV Diastolic Length 4C 7.7 cm LV Systolic Length 4C 6.4 cm LV Diastolic Volume MOD 2C 76.8 cm??? LV Systolic Volume MOD 2C 26.2 cm??? LV Ejection Fraction MOD 2C 65.8 % LV Cardiac Index MOD 2C 1648.4 cm???/min???m??? LV Diastolic Length 2C 7.8 cm LV Systolic Length 2C 6.1 cm LA Volume 45.4 cm??? 18 - 58 / 22 - 52 cm??? LA Volume Index 23.9 cm???/m??? 16 - 28 cm???/m??? Ascending Aorta Diameter 2.9 cm DOPPLER AV Peak Velocity 148.5 cm/s AV Peak Gradient 8.8 mmHg AV Mean Velocity 96.6 cm/s AV Mean Gradient 4.2 mmHg AV Velocity Time Integral 32.3 cm LVOT Peak Velocity 106.7 cm/s LVOT Peak Gradient 4.6 mmHg LVOT Velocity Time Integral 23.8 cm LVOT Stroke Volume 63.1 cm??? LVOT Stroke Volume Index 34.2 ml/m??? LVOT Cardiac Index 2056.8 cm???/min???m??? AV Area Cont Eq vti 2.0 cm??? AV Area Cont Eq pk 1.9 cm??? MV Area PHT 3.6 cm??? Mitral E Point Velocity 67.4 cm/s Mitral A Point Velocity 39.8 cm/s Mitral E to A Ratio 1.7 MV Deceleration Time 212.2 ms TR Peak Velocity 337.0 cm/s TR Peak Gradient 45.4 mmHg Right Atrial Pressure 5.0 mmHg Pulmonary Artery Systolic Pressu 50.4 mmHg Right Ventricular Systolic Press 50.4 mmHg PV Peak Velocity 84.9 cm/s PV Peak Gradient 2.9 mmHg FINDINGS Left Ventricle Left ventricular ejection fraction is estimated at 55-60 %. Left ventricular cavity size normal. Left ventricular wall thickness normal. No obvious regional wall motion abnormalities. Right Ventricle Normal right ventricular size and function. Moderate pulmonary hypertension. Right Atrium Normal right atrial size. Left Atrium Normal left atrial size. 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 No aortic valve stenosis or regurgitation. Tricuspid Valve Structurally normal tricuspid valve. No tricuspid stenosis. Moderate tricuspid regurgitation. Pulmonic Valve Structurally normal pulmonic valve. No pulmonic stenosis. Trace pulmonic regurgitation. Pericardium No pericardial effusion. Aorta Normal size aortic root and proximal ascending aorta. 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 Miguel Andrade MD (Electronically Signed) Final Date: 24 January 2024 11:59
--- NOTE | 2024-01-24 13:15 | CA ---
Stress Echo Report Glenny Zimmerman Age: 58 Gender: F : 1965 Exam Date: 01/24/2024 12:25 Exam Location: [facility] Ht (in): 65 Wt (lb): 170 Ordering Physician: Ruby Harvey Referring Physician: [id number] Matias [place] Knitter: Radha Jacobs RDCS Technologist Procedure CPT: Indication: Chest Pain ICD-9 Codes: Rhythm: Patient History: Chest pain Cardiac Medications: Medications in past 24 hours: Contrast: Stress Results Protocol: Remington Total dose(mL): Exercise Duration (min:sec): 9:[address] Depression (mm): Angina Score: Hewitt Score: METS: 10.3 Resting HR: 67 Resting BP: 168 / 47 Peak HR: 152 Peak BP: 157 / 56 Max Predicted HR: 162 94 % Max Predicted HR Target HR: 138 Double Product: [id number] Stress Summary: BP Response: Reason for Termination: Reached target heart rate or work-load Cardiac Symptoms: No Symptoms ECG Analysis Resting ECG: Stress ECG: Arrhythmia: Echo Analysis Resting Echo: Peak Echo Analysis: MEASUREMENTS (Male/Female) Normal Values CONCLUSIONS Excellent exercise tolerance Mild EKG changes in response to exercise Normal echocardiogram in response to exercise with no evidence of any wall motion abnormalities concerning for ischemia Dr. Miguel Andrade MD (Electronically Signed) Final Date: 24 January 2024 13:14
--- NOTE | 2024-01-24 13:32 | P.DS ---
Providers Date of admission: 01/22/24 19:20 Expected date of discharge: 01/24/24 Attending physician: Candelario Seth Consults: 01/22/24 19:20 Consult Physician Urgent Consulting Provider: Wenceslao Kasper Consult Reason/Comments: chest pain Do you want consulting provider notified?: Yes 01/24/24 08:29 Consult Physician Routine Consulting Provider: Ward Maharaj Consult Reason/Comments: neck/back/right shoulder pain-CT C3-C6 disc bulge w/ sac compression steono Do you want consulting provider notified?: Yes Primary care physician: Jimmy Henry DO Hospital Course: Discharge Diagnosis: Cervical canal stenosis and foraminal stenosis. Chest pain, acute coronary event ruled out History of pericarditis History of cyst adjacent to heart status post removal Hyperlipidemia Hospital course: Patient is a very pleasant 58-year-old female with a past medical history of hyperlipidemia, pericarditis, and hx of cyst adjacent to her heart status post removal. She presented to the emergency department on 01/22/2024 with a chief complaint of chest pain. Patient reporting sharp stabbing chest pain radiating into her back and right shoulder accompanied by stiff/sore neck awakening her from sleep. She reports pain is 10 out of 10 times. She denies increased pain with movement or upon taking a deep breath. She does admit to accompanying shortness of breath. Upon arrival to our facility, patient underwent evaluation in the emergency department. Vital signs upon arrival show blood pressure 130/82, heart rate 75, respiratory rate 20, temp 97.5 F, and SpO2 of 98% on room air. EKG completed showing normal sinus rhythm at 61 bpm with no noted T wave or ST abnormality showing no signs of acute ischemia upon personal review and interpretation. Labs completed and reviewed. CBC unremarkable. Coagulation profile normal findings. D-dimer negative at 0.20. BMP unremarkable. Blood glucose 113. Magnesium 2.0. Troponin was negative at less than 0.012. Patient was admitted under our services with consultation to cardiology. Troponins were trended overnight resulting at <0.012, 0.014, and < 0.012. Lipid profile showing elevated triglycerides of 207, total cholesterol of 261, LDL of 171.1, and VLDL of 41.40. Echocardiogram was completed showing a preserved EF of 55 to 60%, moderate pulmonary hypertension, moderate tricuspid regurgitation and myxomatous mitral valve with mitral regurgitation. Patient wa s taken for cardiac stress echo which reported patient to have excellent exercise tolerance with mild EKG changes and response to exercise with no evidence of any wall abnormalities concerning for ischemia. Patient cleared from cardiac perspective for discharge. CT with contrast of thoracic and lumbar spine revealing multilevel cervical disc disease with C3-C6 anterior thecal sac compression, C5-C6 severe spinal canal stenosis, and severe foraminal stenosis of C3-C4, C4-C5, and C5-C6. Orthospine surgery consulted and personally evaluated CT findings. After patient evaluation, orthospine surgery team recommending no emergent surgical interventions. Provided patient with prescription for cervical MRI to be completed in outpatient setting and for patient to follow-up in their office in 2 to 3 weeks to discuss these results and treatment options. Patient cleared from medical standpoint at this time. She was provided with a prescription for Medrol Dosepak, 3-day course of [place] for pain management, Zanaflex 4 mg every 6 hours as needed for muscle spasm/pain, and started on atorvastatin 40 mg nightly. Patient to follow-up outpatient with PCP in 1 to 2 days and with orthospine surgery team in 2 to 3 weeks. Physical exam: Vital signs reviewed and stable. General: Nontoxic, no distress and appears stated age. Derm: Skin warm and dry, normal coloration for ethnicity. Head: Atraumatic, normocephalic and symmetric. Eyes: EOM's intact, no lid lag, and anicteric sclera Mouth: no lip lesions, mucus membranes moist Cardiovascular: regular rate and rhythm with normal S1S2, no murmur, positive posterior tibial pulses bilaterally, and cap refill < 2 seconds. Lungs: Respirations even, regular, and unlabored on room air. Lungs CTA bilaterally, no rhonchi, no rales, no wheezing, and no accessory muscle usage. Abdominal: soft, nontender to palpation, no guarding, no appreciable organomegaly Ext: ROM intact. No gross muscle atrophy, no edema, no contractures Neuro: Speech clear, face symmetrical and CN II-XII grossly intact with no noted focal neuro deficits Psych: Alert and oriented to person, place, time, and situation. Appropriate and pleasant affect. A total of 36 minutes of time were spent preparing this complex discharge summary. Pt was discharged on 01/24/2024 at 1:29 PM Patient was seen independently by Nurse Practitioner. This document was prepared using [employer] dictation software. Please allow for errors in implementation specialist payroll while rare they do occur. Giuliano Becker NP rendered care for this patient independently, reviewed the findings and plan as documented in the note above. I did not physically speak with or examine the patient on this date. Patient Condition at Discharge: Stable Plan - Discharge Summary Discharge Rx Participant: Yes New Discharge Prescriptions: New Atorvastatin [Lipitor] 40 mg PO HS 30 Days #30 tab methylPREDNISolone Dose Pack [Medrol Dose Pack] 4 mg PO DIRECTED #21 tab HYDROcodone/APAP 5-325MG [[place] 5-325] 1 each PO Q6HR PRN #12 tab PRN Reason: Pain tiZANidine [Zanaflex] 4 mg PO Q6HR PRN #20 tab PRN Reason: Muscle Spasm Discharge Medication List Atorvastatin [Lipitor] 40 mg PO HS 30 Days #30 tab 01/24/24 [Rx] HYDROcodone/APAP 5-325MG [[place] 5-325] 1 each PO Q6HR PRN #12 tab 01/24/24 [Rx] methylPREDNISolone Dose Pack [Medrol Dose Pack] 4 mg PO DIRECTED #21 tab 01/24/24 [Rx] tiZANidine [Zanaflex] 4 mg PO Q6HR PRN #20 tab 01/24/24 [Rx] Follow up Appointment(s)/Referral(s): Jimmy Henry DO [Primary Care Provider] - 1-2 days Ward Maharaj DO [Doctor of Osteopathic Medicine] - 2 Weeks Patient Instructions/Handouts: Cervical Spinal Stenosis (DC), Degenerative Disc Disease (DC) Activity/Diet/Wound Care/Special Instructions: Activity: As tolerated. Take breaks as needed. Diet: Heart healthy and carb consistent diet. Avoid salts, or foods with hidden salts such as canned or boxed foods and frozen dinners. Extra salt makes your heart work harder and traps the fluid in your body for longer. Special Instructions: Take all of your medications as directed and remember to keep all of your doctor's appointments and follow-up as needed. Will need to follow-up outpatient with your PCP in 1 to 2 days, recommend outpatient follow-up with head porter in 1 to 2 weeks, and recommend outpatient follow-up with orthospine/neurosurgeon for evaluation and further management of your cervical spinal stenosis. Thank you for allowing us to participate in your care, it was truly a pleasure having you for our patient!!! . Discharge Disposition: HOME SELF-CARE
--- NOTE | 2024-01-24 13:35 | P.CNOR ---
History of Present Illness - [facility] Consult date: 01/24/24 Consult reason: neck pain History of present illness: Patient is a 58-year-old female who was admitted to [facility] on Tuesday with regards to cardiac issues and other medical complaints. Patient has undergone an extensive workup and has been followed by both internal medicine and cardiology. During her stay she has reported some significant neck pain that radiates into the right shoulder. A cervical spine CT scan without contrast was ordered by internal medicine, our orthopedic team was then consulted due to the findings. Patient was evaluated at bedside today, her was present also. Patient states that this pain began early last week and progressively got worse. She has had instances in the past where she is developed neck pain along with pain that radiates into the both extremities. She also states she has had numbness and tingling radiating to the bilateral extremities, nothing that stays consistent though. Patient was taking multiple medications prior to arrival, this to include Tylenol and [id number] anti-inflammatories. Since being in the hospital, she feels that the only thing that has helped much was the muscle relaxer and the oral pain medication. Patient denies any previous surgery to her cervical spine. She denies any significant loss of strength or motion to the upper extremities. She denies any loss of motion or strength of the bilateral lower extremities. She denies any numbness or tingling to the bilateral lower extremities. Currently she has some mild paresthesias in the right upper extremity mainly above the elbow. She denies any loss of bowel or bladder function. She denies any genital numbness or tingling or perineal nu mbness or tingling. Currently denies any headaches, lightheadedness, chest pain, shortness of freddy ath, nausea or vomiting, fever or chills. Review of Systems Constitutional: Reports as per HPI Past Medical History Past Medical History: Hyperlipidemia Additional Past Medical History / Comment(s): Pericarditis, cyst pressing on heart, twisted volvulus History of Any Multi-Drug Resistant Organisms: None Reported Past Surgical History: Bowel Resection, Section, Cholecystectomy Additional Past Surgical History / Comment(s): Cyst removed that was pressing on heart Past Psychological History: Anxiety Smoking Status: Never smoker Past Alcohol Use History: Occasional Past Drug Use History: None Reported Medications and Allergies Home Medications Medication Instructions Recorded Confirmed Type Atorvastatin [Lipitor] 40 mg PO HS 30 Days #30 tab 01/24/24 Rx HYDROcodone/APAP 5-325MG [[place] 1 each PO Q6HR PRN #12 tab 01/24/24 Rx 5-325] methylPREDNISolone Dose Pack 4 mg PO DIRECTED #21 tab 01/24/24 Rx [Medrol Dose Pack] tiZANidine [Zanaflex] 4 mg PO Q6HR PRN #20 tab 01/24/24 Rx Allergies Allergy/AdvReac Type Severity Reaction Status Date / Time aloe Allergy Anaphylaxis Verified 01/22/24 19:38 CACTUS Allergy Anaphylaxis Uncoded 01/22/24 19:38 Physical Examination Gen: AOx3, NAD VSS stable at this time Integument: No open lesions, sores or areas of erythema throughout the cervical, thoracic or lumbar spine Palpation: Patient demonstrates mild tenderness with palpation to the right sided paraspinal region in the cervical spine, also in the right trapezius muscle ROM: Full range of motion in all major muscle groups of the bilateral upper and lower extremities, no focal deficits appreciated Sensory Exam: Senory exam to light touch is intact C5-T1 Senosry exam to light touch is intact L2-S1 Motor: 5/5 strength appreciated the bilateral upper extremities with shoulder elevation, shoulder abduction, elbow extension, elbow flexion, wrist extension, wrist flexion, executive vice president and chief financial officer 5/5 strength appreciated the bilateral lower extremities with hip flexion, knee extension, knee flexion, plantarflexion, dorsiflexion, EHL, FHL Reflexes: 2/4 in all UE and LE Negative Jacquelyn's bilaterally Negative clonus bilaterally Special Test: Negative straight leg raise bilaterally Results - Labs Labs: Abnormal Lab Results - Last 24 Hours (Table) 01/24/24 Range/Units 04:20 Glucose 117 H (70-110) mg/dL H & H 01/22/24 01/24/24 Range/Units 17:26 04:20 Hgb 14.4 14.4 (11.4-16.0) gm/dL Hct 43.1 43.5 (34.0-46.0) % Coagulation 01/22/24 Range/Units 17:26 INR 1.0 (<1.2) Result Diagrams: 01/24/24 04:20 01/24/24 04:20 - Diagnostic results CT scan - cervical: report reviewed, image reviewed Assessment and Plan Assessment: Neck pain Right upper extremity radiculopathy Multilevel cervical spondylosis, worst levels being C3-C4, C4-C5, C5-C6 Multilevel cervical neuroforaminal stenosis Multilevel cervical central canal stenosis Other medical comorbidities Plan: Imaging: CT scan of the cervical spine both report and images were reviewed with my attending Dr. Maharaj. No acute fractures or dislocations appreciated. Multilevel lumbar spondylosis, varying degrees of neuroforaminal and central canal stenosis. Worst levels being at C3-C4, C4-C5, C5-C6. Plan: After discussion with my attending Dr. Goodman Moody, no emergent orthopedic surgical intervention is recommended at this point. Patient's physical exam today demonstrated no acute neuropathic signs. Patient's range of motion and strength in the upper extremities along with lower extremities are very good. She has no bowel or bladder issues. She has no difficulty with fine motor movements at this time, she also demonstrates no balance issues. I did provide the patient with a prescription for a cervical MRI without contrast to be done in the outpatient setting to evaluate the spinal cord in further detail. Pain control, we discussed multiple medications that she could utilize. Recommending the use of a Medrol Dosepak over the next week. We also discussed the use of oral anti-inflammatories after this prescription is finished. She could also utilize a low-dose muscle relaxer and low-dose narcotic as needed. Recommend follow-up in the outpatient setting with Dr. Goodman gauthier in the next 2 to 3 weeks after her cervical MRI to review results and discuss options for treatment. Orthopedically patient remains stable for discharge and follow-up in the outpatient setting Time with Patient: Less than 30
[2024-01-24 14:54] VITALS: BP 99/63; PULSE 72; RESP 15; TEMP 97.8
== END 2024-01-24 16:06 | disposition home or self-care (01) ==
LOC: EC 16:54 → 6NMEDSUR 19:20
PROVIDERS: ADMIT Student in an Organized Health Care Education/Training Program; ATTEND Student in an Organized Health Care Education/Training Program
DX: M48.02 Spinal stenosis, cervical region (principal); M99.51 Intervertebral disc stenosis of neural canal of cervical region; M54.12 Radiculopathy, cervical region; M50.90 Cervical disc disorder, unspecified, unspecified cervical region; I27.20 Pulmonary hypertension, unspecified; I08.1 Rheumatic disorders of both mitral and tricuspid valves; M25.511 Pain in right shoulder; R07.89 Other chest pain; R11.0 Nausea; E78.1 Pure hyperglyceridemia; E78.00 Pure hypercholesterolemia, unspecified; I10 Essential (primary) hypertension; F41.9 Anxiety disorder, unspecified; Z79.82 Long term (current) use of aspirin; Z79.899 Other long term (current) drug therapy; Z86.79 Personal history of other diseases of the circulatory system; Z87.891 Personal history of nicotine dependence; Z91.018 Allergy to other foods
CPT/HCPCS: 96376 ×2; 96372 ×2; 96375 ×4; 96374; 99285; 36415; 93005 ×2; 93306; 93351; 85379 ×2; 80061; 80053; 80048; 85652; 82565; 83735 ×2; 84520; 84484 ×2; 85025; 85027; 85610; 85730; 71046; 74018; 72127; 71275; G0378 ×3; J2270; J1644 ×2; J1100; J2360 ×2; J2405; J1171; J1885 ×3; Q9967 ×2

== ENCOUNTER → 2024-01-30 | Outpatient (CLI) | payer OTHER ==
--- NOTE | 2024-01-30 20:25 | MR ---
INDICATION: Patient age:Female; 58 years old; Reason for study: M47.22; [facility]. COMPARISON: CT cervical spine 01/23/2024. TECHNIQUE: Multi planar, multi sequence imaging was performed. No Gadolinium was given. FINDINGS: Alignment: The cervical vertebral bodies have preserved heights. Similar degenerative mild retrolisth esis C4 on C5. Bones: Bone signal is within normal limits. Multilevel anterior osteophytosis with endplate degenerat luca changes type I Modic changes involving the superior endplate of the T1 vertebral body. Cord: The spinal cord is unremarkable with regards to their signal intensity and morphology. Discs: Multilevel disc desiccation is present. C2-C3: No significant disc pathology. The spinal canal is patent. Bilateral facet arthropathy. No ne ural foraminal stenosis. C3-C4: Posterior disc osteophyte complex with mild effacement of the anterior thecal sac. Uncovertebr al joint hypertrophy with moderate bilateral neural foraminal stenosis. C4-C5: Posterior disc osteophyte complex with moderate effacement of the anterior thecal sac. Uncover tebral joint hypertrophy with severe left and mild right neural foraminal stenosis. C5-C6: Posterior disc osteophyte complex with moderate effacement of the anterior thecal sac. Uncover tebral joint hypertrophy with severe right and moderate left neural foraminal stenosis. C6-C7: Broad-based disc bulge with minimal effacement of the anterior thecal sac. Uncovertebral joint hypertrophy with mild left neural foraminal stenosis. The right neural foramen is patent. C7-T1: Minimal broad-based disc bulge without significant effacement of the anterior thecal sac. No neural foraminal stenosis. Other: None. IMPRESSION: Multilevel disc degeneration with multilevel uncovertebral joint hypertrophy. Most pronounced at C4-C 6 with moderate central canal stenosis secondary to posterior disc osteophyte complexes. [facility], , 01/30/2024 8:22 PM
== END | disposition home or self-care (01) ==
LOC: RADMRIMAIN 19:24
PROVIDERS: ATTEND Orthopaedic Surgery
DX: M47.22 Other spondylosis with radiculopathy, cervical region (principal); M25.78 Osteophyte, vertebrae; M48.02 Spinal stenosis, cervical region; M50.30 Other cervical disc degeneration, unspecified cervical region
CPT/HCPCS: 72141